=== PATIENT | male | born 1940 | race American Indian/Alaskan Native ===

== ENCOUNTER 2018-06-04 13:24 | Inpatient (IN) | payer MEDICARE ==
[2018-06-04 14:22] LABS: Hematocrit 33.2 % (35.5-45.6); Hemoglobin 10.6 gm/dl (11.8-15.2); Mean Corpuscular HGB Conc 32 % (32-34); Mean Corpuscular Hemoglobin 27 pg (28-32); Mean Corpuscular Volume 83 fl (84-94); Platelet Count 342 K/mm3 (140-440); Red Blood Count 3.98 M/mm3 (3.65-5.03); Red Cell Distribution Width 14.2 % (13.2-15.2)
[2018-06-04 14:46] LABS: Albumin 3.3 g/dL (3.9-5); Calcium 9.1 mg/dL (8.4-10.2)
--- NOTE | 2018-06-04 16:46 | Emergency Department Report ---
HPI - General Chief Complaint: Extremity Injury, Lower Time Seen by Provider: 06/04/18 16:24 - HPI HPI: Room 26 The patient is a 77-year-old male presented with a chief complaint of bilateral lower extremity swelling. The patient states he's had bilateral lower extremity edema for approximately one year. One week ago patient's commercial hvac technician Dr. Graves doubled his diuretic (per patient). The patient was instructed to call the swelling did not improve. The patient states he took his diuretic as prescribed but swelling has not decreased enough for him. The patient states he contacted Dr. Graves yesterday and initially the patient was going to be admitted to [facility] however there were no beds. Subsequently the patient was sent here for evaluation/admission. Patient complains of pain in both knees which is chronic. Patient denies other pain. Patient denies fever, shortness of breath, chest pain nausea or vomiting. Location: Bilateral lower extremities Duration: [See above] Quality: Swelling Severity: Moderate Modifying factors: [see above] Context: [see above] Mode of transportation: [not driving] ED Past Medical Hx - Past Medical History Previous Medical History?: Yes Hx Hypertension: Yes (FOR 6 YRS, DR. CLAROS- PCP) Hx Diabetes: Yes (FOR 6 YRS) Additional medical history: gout. left knee replacement 2006. Peripheral vascular disease - Surgical History Past Surgical History?: Yes Additional Surgical History: vascular surgery for ablasions in both legs, left lower extremity angioplasty - Family History Family history: no significant - Social History Smoking Status: Never Smoker Substance Use Type: None - Medications Home Medications: Home Medications Medication Instructions Recorded Confirmed Last Taken Type Psyllium Husk/Calcium Carb 1 each PO QDAY 09/10/13 08/18/14 09/13/13 History [Metamucil Plus Calcium Capsule] 1 CAPSULE Allopurinol [Zyloprim] 100 mg PO QDAY 08/18/14 08/18/14 Unknown History Fluocinonide 0.05%(Nf) [Lidex (Nf)] 0.05 applicatio TP BID 08/18/14 08/18/1405/24 09:15 History Loratadine [Claritin] 10 mg PO DAILY 08/18/14 08/18/14 Unknown History Metolazone [Zaroxolyn] 5 mg PO DAILY 08/18/14 08/18/14 Unknown History Multivitamin Tab [Multiple Vitamin 1 tab PO DAILY 08/18/14 08/18/14 Unknown History TAB (Theragran)] Potassium Chloride [Klor-Con 10] 10 meq PO DAILY 08/18/14 08/18/14 Unknown History Aspirin [Aspirin TAB] 325 mg PO QDAY #30 tablet 09/02/14 Unknown Rx Hydrochlorothiazide [HCTZ] 25 mg PO QDAY #30 tablet 09/02/14 Unknown Rx Rosuvastatin (Nf) [Crestor] 5 mg PO QHS #30 tablet 09/02/14 Unknown Rx Tamsulosin [Flomax] 0.4 mg PO QDAY #30 capsule 09/02/14 Unknown Rx amLODIPine [Norvasc] 10 mg PO QDAY #30 tablet 09/02/14 Unknown Rx glipiZIDE [Glucotrol] 5 mg PO QDDIAB #60 tablet 09/02/14 Unknown Rx metFORMIN [Glucophage] 1,000 mg PO BIDDIAB #60 tablet 09/02/14 Unknown Rx ED Review of Systems ROS: Stated complaint: OUT PT Other details as noted in HPI Constitutional: denies: fever Eyes: denies: eye pain ENT: denies: throat pain Respiratory: denies: shortness of breath Cardiovascular: denies: chest pain Endocrine: denies: unexplained weight loss Gastrointestinal: denies: abdominal pain, nausea, vomiting Genitourinary: denies: dysuria Musculoskeletal: arthralgia Neurological: denies: headache Physical Exam - Physical Exam Vital Signs: Vital Signs 06/04/18 13:37 Temperature 97.8 F Pulse Rate 64 Respiratory 18 Rate Blood Pressure 147/72 O2 Sat by Pulse 98 Oximetry Physical Exam: GENERAL: The patient is well-developed well-nourished male sitting on stretcher not appear to be in acute distress. [] HEENT: Normocephalic. Atraumatic. Extraocular motions are intact. Patient has moist mucous membranes. NECK: Supple. Trachea midline CHEST/LUNGS: Clear to auscultation. There is no respiratory distress noted. HEART/CARDIOVASCULAR: Occasionally irregular on auscultation (PVCs? Will obtain EKG). There is no tachycardia. There is no gallop rub or murmur. ABDOMEN: Abdomen is soft, nontender. Patient has normal bowel sounds. There is no abdominal distention. SKIN: There is 1+ bilateral lower extremity pitting edema. There is no diaphoresis. NEURO: The patient is awake, alert, and oriented. The patient is cooperative. The patient has normal speech MUSCULOSKELETAL: There is no evidence of acute injury. ED Course Vital Signs 06/04/18 13:37 Temperature 97.8 F Pulse Rate 64 Respiratory 18 Rate Blood Pressure 147/72 O2 Sat by Pulse 98 Oximetry - Consultations Consultation #1: 06/04/18 16:[address] Graves paged 06/04/18 16:[address] Graves-requests patient be admitted by hospitalist for IV Lasix. Creatinine discussed with Dr. Graves states the patient's baseline creatinine is approximately 2.4/2.5 ED Medical Decision Making - Lab Data Result diagrams: 06/04/18 14:01 06/04/18 14:01 - EKG Data -: EKG Interpreted by Me EKG shows normal: sinus rhythm Rate: normal (80 bpm) - EKG Data When compared to previous EKG there are: previous EKG unavailable Interpretation: other (PACs) - Differential Diagnosis peripheral vascular disease, renal failure, CHF, Critical care attestation.: If time is entered above; I have spent that time in minutes in the direct care of this critically ill patient, excluding procedure time. ED Disposition Clinical Impression: Peripheral edema, Acute on chronic renal insufficiency Disposition: OP ADMIT IP TO THIS HOSP Is pt being admited?: Yes Does the pt Need Aspirin: No Condition: Stable Time of Disposition: 17:20 (Hospitalist notified (Dr Field))
--- NOTE | 2018-06-04 17:06 | History and Physical Report ---
History of Present Illness Chief complaint: My leg hurts History of present illness: 77 YO Male with HTN, DM, Obesity, PVD, Gout, OA presents to ED for evaluation. Pt states that he has experienced bilateral leg swelling over the past year with worsening symptoms over the past 2 week, with some improvement in the past 1 week. Pt notified his open die inspector who instructed the patient to seek medical attention. Pt transported to [facility]. Pt seen and evaluated in ED and found to have ARF, SIRS, and LLE Cellulitis. Pt initiated on antibiotic therapy. Pt admitted to medical floor. Nephrology consulted in ED. Pt found to have PAC's on EKG. Cardiology consulted in ED. Pt denies fever, chills, CP, Palpitations, NVD, Trauma, recent ill contacts. Past History Past Medical History: diabetes, hypertension, PVD Past Surgical History: total knee replacement Social history: , lives with family. denies: smoking, alcohol abuse, prescription drug abuse Family history: diabetes, hypertension Medications and Allergies Allergies Allergy/AdvReac Type Severity Reaction Status Date / Time shellfish derived Allergy Shortness Verified 08/18/14 01:39 of Breath iodine AdvReac SWELLING & Verified 09/10/13 14:16 RESPIRATORY DIFFICULTIES lisinopril AdvReac SWELLING & Verified 09/10/13 15:01 RESPIRATORY DIFFICULTIES Home Medications Medication Instructions Recorded Confirmed Last Taken Type Psyllium Husk/Calcium Carb 1 each PO QDAY 09/10/13 08/18/14 09/13/13 History [Metamucil Plus Calcium Capsule] 1 CAPSULE Allopurinol [Zyloprim] 100 mg PO QDAY 08/18/14 08/18/14 Unknown History Fluocinonide 0.05%(Nf) [Lidex (Nf)] 0.05 applicatio TP BID 08/18/14 08/18/1405/24 09:15 History Loratadine [Claritin] 10 mg PO DAILY 08/18/14 08/18/14 Unknown History Metolazone [Zaroxolyn] 5 mg PO DAILY 08/18/14 08/18/14 Unknown History Multivitamin Tab [Multiple Vitamin 1 tab PO DAILY 08/18/14 08/18/14 Unknown History TAB (Theragran)] Potassium Chloride [Klor-Con 10] 10 meq PO DAILY 08/18/14 08/18/14 Unknown History Aspirin [Aspirin TAB] 325 mg PO QDAY #30 tablet 09/02/14 Unknown Rx Hydrochlorothiazide [HCTZ] 25 mg PO QDAY #30 tablet 09/02/14 Unknown Rx Rosuvastatin (Nf) [Crestor] 5 mg PO QHS #30 tablet 09/02/14 Unknown Rx Tamsulosin [Flomax] 0.4 mg PO QDAY #30 capsule 09/02/14 Unknown Rx amLODIPine [Norvasc] 10 mg PO QDAY #30 tablet 09/02/14 Unknown Rx glipiZIDE [Glucotrol] 5 mg PO QDDIAB #60 tablet 09/02/14 Unknown Rx metFORMIN [Glucophage] 1,000 mg PO BIDDIAB #60 tablet 09/02/14 Unknown Rx Review of Systems Constitutional: no weight loss, no weight gain, no fever, no chills Ears, nose, mouth and throat: no ear pain, no ear discharge, no tinnitis, no decreased hearing, no nose pain, no nasal congestion, no nasal discharge Cardiovascular: leg edema, no chest pain, no orthopnea, no palpitations, no rapid/irregular heart beat, no edema, no syncope Respiratory: no cough, no cough with sputum, no excessive sputum, no hemoptysis , no shortness of breath Gastrointestinal: no abdominal pain, no nausea, no vomiting, no diarrhea, no constipation, no change in bowel habits, no hematemesis Genitourinary Male: no hematuria, no flank pain, no discharge, no urinary frequency, no urinary hesitancy, no nocturia Rectal: no pain, no incontinence, no bleeding Musculoskeletal: no neck pain, no shooting arm pain, no arm numbness/tingling, no low back pain, no shooting leg pain, no leg numbness/tingling Integumentary: redness (Left leg,), no rash, no pruritis Neurological: no head injury, no transient paralysis, no paralysis, no weakness , no parathesias, no numbness, no tingling, no seizures Psychiatric: no anxiety, no memory loss, no change in sleep habits, no sleep disturbances, no insomnia, no hypersomnia, no change in appetite, no change in libido, no suicidal ideation Endocrine: no cold intolerance, no heat intolerance, no polyphagia, no excessive thirst, no polydipsia, no nocturia, no excessive sweating, no flushing Hematologic/Lymphatic: no easy bruising, no easy bleeding, no lymphadenopathy, no lymphedema Allergic/Immunologic: no urticaria, no allergic rhinitis, no wheezing Exam - Constitutional Vitals: Temp Pulse Resp BP Pulse Ox 97.8 F 64 18 147/72 98 06/04/18 13:37 06/04/18 13:37 06/04/18 13:37 06/04/18 13:37 06/04/18 13:37 General appearance: Present: mild distress, obese - EENT Eyes: Present: PERRL ENT: hearing intact, clear oral mucosa - Neck Neck: Present: supple, normal ROM - Respiratory Respiratory effort: normal Respiratory: bilateral: CTA - Cardiovascular Heart Sounds: Present: S1 & S2. Absent: rub, click - Extremities Extremities: pulses symmetrical, No edema Peripheral Pulses: within normal limits - Abdominal General gastrointestinal: Present: soft, non-tender, non-distended, normal bowel sounds Male genitourinary: Present: normal - Integumentary Integumentary: Present: clear, warm, dry - Musculoskeletal Musculoskeletal: gait normal, strength equal bilaterally - Psychiatric Psychiatric: appropriate mood/affect, intact judgment & insight - Neurologic Neurologic: CNII-XII intact, moves all extremities Results - Labs CBC & Chem 7: 06/04/18 14:01 06/04/18 14:01 Labs: Abnormal lab results 06/04/18 06/04/18 Range/Units 14:01 14:01 WBC 12.9 H (4.5-11.0) K/mm3 Hgb 10.6 L (11.8-15.2) gm/dl Hct 33.2 L (35.5-45.6) % MCV 83 L (84-94) fl MCH 27 L (28-32) pg Chloride 92.7 L (98-107) mmol/L BUN 43 H (9-20) mg/dL Creatinine 2.8 H (0.8-1.5) mg/dL Glucose 232 H (75-100) mg/dL Albumin 3.3 L (3.9-5) g/dL Assessment and Plan - Patient Problems (1) ARF (acute renal failure) with tubular necrosis Current Visit: Yes Status: Acute Plan to address problem: IVF resuscitation, nephrology consulted in ED, BMP, monitor uop q shift, (2) SIRS (systemic inflammatory response syndrome) Current Visit: Yes Status: Acute Plan to address problem: IV antibiotic therapy, IVF resuscitation, supportive care. (3) Cellulitis Current Visit: Yes Status: Acute Qualifiers: Site of cellulitis of extremity: lower extremity Laterality: left Plan to address problem: IV antibiotics, IVF resuscitation, LLE Duplex (4) PAC (premature atrial contraction) Current Visit: Yes Status: Acute Plan to address problem: Remote telemetry, serial cardiac enzymes, echo, cardiology consulted in ED (5) DVT prophylaxis Current Visit: Yes Status: Acute Plan to address problem: SCD to BLE while in bed.
[2018-06-04] MEDS ORDERED: PROVENTIL IH PRN (17:25)
[2018-06-04] MEDS ORDERED: ZOFRAN IV PRN (17:25)
[2018-06-04] MEDS ORDERED: SODIUM CHLORIDE FLUSH SYRINGE 10 ML IV PRN ×2 (17:25→18:38)
[2018-06-04] MEDS ORDERED: D50W (25GM) Syringe IV PRN (17:34)
[2018-06-04] MEDS: HumaLOG SUB-Q SCH (19:08)
[2018-06-04] MEDS ORDERED: FLUOCINONIDE 0.05% TP SCH (22:00)
[2018-06-04] MEDS ORDERED: ROSUVASTATIN 5 MG PO SCH (22:00)
[2018-06-04 22:01] LABS: Basophils # (Auto) 0.1 K/mm3 (0.0-0.1); Basophils % (Auto) 0.7 % (0.0-1.8); Eosinophils # (Auto) 1.1 K/mm3 (0.0-0.4); Eosinophils % (Auto) 7.2 % (0.0-4.3); Hemoglobin 10.3 gm/dl (11.8-15.2); Lymphocytes # (Auto) 1.6 K/mm3 (1.2-5.4); Lymphocytes % (Auto) 10.5 % (13.4-35.0); Mean Corpuscular HGB Conc 32 % (32-34); Mean Corpuscular Hemoglobin 27 pg (28-32); Mean Corpuscular Volume 83 fl (84-94); Monocytes # (Auto) 1.6 K/mm3 (0.0-0.8); Monocytes % (Auto) 10.5 % (0.0-7.3); Platelet Count 349 K/mm3 (140-440); Red Blood Count 3.87 M/mm3 (3.65-5.03); Red Cell Distribution Width 14.4 % (13.2-15.2)
[2018-06-04] MEDS: SODIUM CHLORIDE FLUSH SYRINGE 10 ML IV SCH (22:25)
[2018-06-04 22:35] LABS: Calcium 8.9 mg/dL (8.4-10.2)
[2018-06-04 22:53] LABS: Chol/HDL Ratio 3.97 %
[2018-06-05] MEDS: TYLENOL PO PRN (00:59)
[2018-06-05] MEDS: HumaLOG SUB-Q SCH ×5 (01:25→22:42)
--- NOTE | 2018-06-05 08:58 | Consultation ---
History of Present Illness - Reason for Consult Consult date: 06/05/18 acute renal failure, chronic renal failure Requesting physician: MANOJ LIND - History of Present Illness 77-year-old male who was admitted because of worsening bilateral lower extremity swelling. Patient saw Dr. Graves in the office a couple of weeks ago and the dose of oral diuretic was doubled. Patient did not observe any improvement and so he called and was sent to the hospital for IV diuretics. He also complains of pain now. Denies any chills or fever. 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 denies: smoking (Quit smoking about 10 years ago), alcohol abuse, prescription drug abuse Family history: cancer (father of prostate cancer), diabetes, hypertension , other ( of congestive heart failure) Medications and Allergies Allergies Allergy/AdvReac Type Severity Reaction Status Date / Time shellfish derived Allergy Shortness Verified 08/18/14 01:39 of Breath iodine AdvReac SWELLING & Verified 09/10/13 14:16 RESPIRATORY DIFFICULTIES lisinopril AdvReac SWELLING & Verified 09/10/13 15:01 RESPIRATORY DIFFICULTIES Home Medications Medication Instructions Recorded Confirmed Last Taken Type Metolazone [Zaroxolyn] 5 mg PO BID 08/18/14 06/04/18 Unknown History Potassium Chloride [Klor-Con 10] 10 meq PO DAILY 08/18/14 06/04/18 Unknown History Rosuvastatin (Nf) [Crestor] 5 mg PO QHS #30 tablet 09/02/14 06/04/18 Unknown Rx Allopurinol [Zyloprim] 300 mg PO QDAY 06/04/18 06/04/18 Unknown History Clopidogrel Bisulfate [Plavix] 75 mg PO DAILY 06/04/18 06/04/18 Unknown History Colchicine [Mitigare] 0.6 mg PO DAILY 06/04/18 06/04/18 Unknown History Diphenoxylate HCl/Atropine 1 each PO Q12H 06/04/18 06/04/18 Unknown History [Diphenoxylate-Atrop 2.5-0.025] Donepezil [Aricept] 5 mg PO DAILY 06/04/18 06/04/18 Unknown History Hydralazine HCl 25 mg PO TID 06/04/18 06/04/18 Unknown History Insulin Degludec [Tresiba 70 unit SQ QHS 06/04/18 06/04/18 Unknown History Flextouch U-100] Losartan [Cozaar] 100 mg PO QDAY 06/04/18 06/04/18 Unknown History Mirabegron [Myrbetriq] 50 mg PO DAILY 06/04/18 06/04/18 Unknown History NIFEdipine [Nifedipine ER] 60 mg PO DAILY 06/04/18 06/04/18 Unknown History Active Meds: Active Medications Acetaminophen (Tylenol) 650 mg PO Q4H PRN PRN Reason: Pain MILD(1-3)/Fever >100.5/HOWARD Last Admin: 06/05/18 00:59 Dose: 650 mg Albuterol (Proventil) 2.5 mg IH Q4HRT PRN PRN Reason: Shortness Of Breath Allopurinol (Zyloprim) 100 mg PO QDAY [facility] Amlodipine Besylate (Norvasc) 10 mg PO QDAY [facility] Aspirin (Aspirin) 325 mg PO QDAY [facility] Atorvastatin Calcium (Lipitor) 10 mg PO QHS [facility] Last Admin: 06/04/18 22:24 Dose: 10 mg Dextrose (D50w (25gm) Syringe) 50 ml IV PRN PRN PRN Reason: Hypoglycemia Hydrochlorothiazide (Hctz) 25 mg PO QDAY [facility] Ceftriaxone Sodium (Rocephin/Ns 1 Gm/50 Ml) 1 gm in 50 mls @ 100 mls/hr IV Q24HR [facility]; Protocol Insulin Human Lispro (Humalog) 0 unit SUB-Q Q6HR [facility]; Protocol Last Admin: 06/05/18 07:05 Dose: 2 unit Loratadine (Claritin) 10 mg PO DAILY [facility] Metolazone (Zaroxolyn) 5 mg PO DAILY [facility] Miscellaneous Medication (Fluocinonide 0.05%(Nf)) 0.05 applicatio TP BID [facility] Miscellaneous Medication (Psyllium Husk/Calcium Carb [Metamucil Plus Calcium Capsule]) 1 each PO QDAY [facility] Multivitamins (Theragran Tab) 1 each PO DAILY [facility] Ondansetron HCl (Zofran) 4 mg IV Q8H PRN PRN Reason: Nausea And Vomiting Pneumococcal Polyvalent Vaccine (Pneumovax 23) 0.5 ml IM .ONCE ONE Stop: 06/05/18 12:01 Potassium Chloride (K-Dur) 10 meq PO QDAY [facility] Sodium Chloride (Sodium Chloride Flush Syringe 10 Ml) 10 ml IV BID [facility] Last Admin: 06/04/18 22:25 Dose: 10 ml Sodium Chloride (Sodium Chloride Flush Syringe 10 Ml) 10 ml IV PRN PRN PRN Reason: LINE FLUSH Sodium Chloride (Sodium Chloride Flush Syringe 10 Ml) 10 ml IV PRN PRN PRN Reason: LINE FLUSH Tamsulosin HCl (Flomax) 0.4 mg PO QDAY [facility] Review of Systems All systems: negative (Constitutional: no fever or chills. No anorexia or weight loss. HEENT: No sore throat but admits to posterior knee surgery and sinus drainage. No hearing or vision impairment . Cardiovascular: No chest pain , but admits to shortness of breath and lower extremity swelling. No , palpitations or dizziness. Respiratory: Admits to cough which is nonproductive. No hemoptysis or wheezing. Gastrointestinal: No nausea, vomiting but he had diarrhea 4 to a couple of days ago which has resolved. No abdominal pain, hematemesis or melena. Genitourinary: No frequency urgency dysuria or hematuria but he did observe a decrease in urine output. hematologic : No abnormal bleeding or bruising. Integumentary: no pruritus but understood the rash in both lower changes. Neurological: Admits to headache last night. No focal weakness or numbness, no syncope or seizures. Endocrine: Blood sugar has been controlled but increased over the last 2 days. He also admits to cold intolerance. No heat intolerance. Musculoskeletal: Admits to pain in his right knee. No stiffness. Psychiatry: no anxiety or depression) Exam - Vital Signs Vital signs: Vital Signs Temp Pulse Resp BP Pulse Ox 97.8 F 64 18 147/72 98 06/04/18 13:37 06/04/18 13:37 06/04/18 13:37 06/04/18 13:37 06/04/18 13:37 - Physical Exam Narrative exam: Elderly -Algerian lying in bed in no acute distress HEENT: NCAT, pink oral mucous membrane Neck: Supple, no venous distention CVS: S1S2 RRR with no murmur, rub or gallop Chest: Clear to auscultation but diminished in the lower zones Abdomen: obese soft, nontender, no organomegaly, bowel sounds are present Extremities: 1-2+ bilateral lower extremity edema, scaling with pigmentary changes in both legs with thickening of the skin, tenderness worse in the right leg Genitourinary deferred: Skin as noted in lower extremity exam Neuro: Awake, alert no focal deficits Results - Lab Results 06/06/18 05:01 06/06/18 05:01 Most recent lab results Calcium 8.9 mg/dL (8.4-10.2) 06/04/18 21:44 Assessment and Plan - Patient Problems (1) Type 2 diabetes mellitus with diabetic chronic kidney disease Current Visit: Yes Status: Acute Plan to address problem: Blood sugar management by primary attending (2) Hypertensive chronic kidney disease with stage 1 through stage 4 chronic kidney disease, or unspecified chronic kidney disease Current Visit: Yes Status: Acute Plan to address problem: Follow-up of blood pressure on current medications (3) Acute kidney injury Current Visit: No Status: Chronic Plan to address problem: Acute on chronic kidney disease. Acute kidney injury is probably prerenal azotemia. Get renal ultrasound and urine studies. Follow up electrolytes and renal function with diuresis. (4) Cellulitis of both lower extremities Current Visit: Yes Status: Acute Plan to address problem: Follow-up cultures. Continue antibiotics (5) Bilateral lower extremity edema Current Visit: Yes Status: Acute Plan to address problem: IV diuretics
[2018-06-05] MEDS ORDERED: NON-FORMULARY (Potassium Chloride [Klor-Con 10] 10 MEQ) PO SCH (10:00)
[2018-06-05] MEDS ORDERED: HCTZ PO SCH (10:00)
[2018-06-05] MEDS ORDERED: NORVASC PO SCH (10:00)
[2018-06-05] MEDS: ASPIRIN PO SCH (10:30)
[2018-06-05] MEDS: ZYLOPRIM PO SCH (10:31)
[2018-06-05] MEDS: ZAROXOLYN PO SCH (10:31)
[2018-06-05] MEDS: ROCEPHIN/NS 1 GM/50 ML 1 GM/50 ML BAG IV SCH (10:31)
[2018-06-05] MEDS: CLARITIN PO SCH (10:31)
[2018-06-05] MEDS: FLOMAX PO SCH (10:31)
[2018-06-05] MEDS: THERAGRAN Tab PO SCH (10:31)
[2018-06-05] MEDS: K-DUR PO SCH (10:31)
[2018-06-05] MEDS: SODIUM CHLORIDE FLUSH SYRINGE 10 ML IV SCH ×2 (10:32→22:00)
--- NOTE | 2018-06-05 10:51 | Progress Note ---
Assessment and Plan Assessment and plan: Mr. Petr Hanson is a 77 yo man with a history of hypertension, type 2 DM, pvd, gout and OA who presented with leg pains and swelling. Admitted for arf, sirs, and lle cellulitis. * LLE venous duplex technically limited due to habitus, no DVT/SVT visualized -ARF (acute renal failure) multi-factorial, with tubular necrosis dx on admission: IVF resuscitation, nephrology consulted in ED, BMP, monitor uop q shift, -Sepsis LLE cellulitis, poa: treat with abx -Obese, bmi 35.5: weight reduction stressed -Type 2 DM with hyperglycemia: start diet, add ssi -Hypokalemia: replace and bmp am -Anemia, appears chronic because no signs of bleeding, but check cbc in am, ordered FOBT -PAC (premature atrial contraction): usually PACs are benign but Remote telemetry, serial cardiac enzymes, echo (cancelled), cardiology consulted ordered -DVT prophylaxis: scd and asa, hold heparin due to anemia, recheck cbc to make sure h/h stable -Advance care planning: full code ordered Renal u/s, FOBT am labs History Interval history: Patient was seen and examined. Follow-up on current diagnosis of leg pains. Overnight uneventful. Patient denies any chest pain, shortness breath, nausea/ vomiting or severe headaches. Imaging, nursing note, chart, labs and old chart reviewed. Discussed with patient. Hospitalist Physical - Physical exam Narrative exam: GEN: WDWN, NAD, Awake, Alert, Orientated x 3 HEENT: NCAT, EOMI, PERRL, OP Clear NECK: supple, no adenopathy, no thyromegaly, no JVD CVS/HEART: RRR, normal S1S2, pulses present bilaterally CHEST/LUNGS: CTA B, Symmetrical chest expansion, good air entry bilaterally GI/Abdomen: soft, NTND, good bowel sounds, no guarding or rebound /Bladder: no suprapubic tenderness, no CVA or paraspinal tenderness EXT/Skin: lower leg venous changes MSK: FROM x 4 Neuro: CN 2-12 grossly intact, no new focal deficits Psych: calm - Constitutional Vitals: Temp Pulse Resp BP Pulse Ox 97.9 F 70 18 138/61 95 06/05/18 09:04 06/05/18 09:04 06/05/18 09:04 06/05/18 09:04 06/05/18 09:04 General appearance: Present: obese Results - Labs CBC & Chem 7: 06/04/18 21:44 06/04/18 21:44 Labs: Laboratory Last Values WBC 15.3 K/mm3 (4.5-11.0) H 06/04/18 21:44 RBC 3.87 M/mm3 (3.65-5.03) 06/04/18 21:44 Hgb 10.3 gm/dl (11.8-15.2) L 06/04/18 21:44 Hct 32.0 % (35.5-45.6) L 06/04/18 21:44 MCV 83 fl (84-94) L 06/04/18 21:44 MCH 27 pg (28-32) L 06/04/18 21:44 MCHC 32 % (32-34) 06/04/18 21:44 RDW 14.4 % (13.2-15.2) 06/04/18 21:44 Plt Count 349 K/mm3 (140-440) 06/04/18 21:44 Lymph % (Auto) 10.5 % (13.4-35.0) L 06/04/18 21:44 Emmet % (Auto) 10.5 % (0.0-7.3) H 06/04/18 21:44 Eos % (Auto) 7.2 % (0.0-4.3) H 06/04/18 21:44 Baso % (Auto) 0.7 % (0.0-1.8) 06/04/18 21:44 Lymph # 1.6 K/mm3 (1.2-5.4) 06/04/18 21:44 Emmet # 1.6 K/mm3 (0.0-0.8) H 06/04/18 21:44 Eos # 1.1 K/mm3 (0.0-0.4) H 06/04/18 21:44 Baso # 0.1 K/mm3 (0.0-0.1) 06/04/18 21:44 Seg Neutrophils % 71.1 % (40.0-70.0) H 06/04/18 21:44 Seg Neutrophils # 10.9 K/mm3 (1.8-7.7) H 06/04/18 21:44 Sodium 137 mmol/L (137-145) 06/04/18 21:44 Potassium 3.2 mmol/L (3.6-5.0) L 06/04/18 21:44 Chloride 92.7 mmol/L (98-107) L 06/04/18 21:44 Carbon Dioxide 27 mmol/L (22-30) 06/04/18 21:44 Anion Gap 21 mmol/L 06/04/18 21:44 BUN 46 mg/dL (9-20) H 06/04/18 21:44 Creatinine 2.8 mg/dL (0.8-1.5) H 06/04/18 21:44 Estimated GFR 27 ml/min 06/04/18 21:44 BUN/Creatinine Ratio 16 % 06/04/18 21:44 Glucose 180 mg/dL (75-100) H 06/04/18 21:44 POC Glucose 176 (70-105) H 06/05/18 05:49 Calcium 8.9 mg/dL (8.4-10.2) 06/04/18 21:44 Total Bilirubin 0.50 mg/dL (0.1-1.2) 06/04/18 14:01 AST 12 units/L (5-40) 06/04/18 14:01 ALT 8 units/L (7-56) 06/04/18 14:01 Alkaline Phosphatase 99 units/L (35-129) 06/04/18 14:01 Troponin T 0.030 ng/mL (0.00-0.029) H D 06/05/18 00:14 NT-Pro-B Natriuret Pep 583.7 pg/mL (0-900) 06/04/18 14:01 Total Protein 7.5 g/dL (6.3-8.2) 06/04/18 14:01 Albumin 3.3 g/dL (3.9-5) L 06/04/18 14:01 Albumin/Globulin Ratio 0.8 % 06/04/18 14:01 Triglycerides 218 mg/dL (2-149) H 06/04/18 21:44 Cholesterol 139 mg/dL (50-199) 06/04/18 21:44 LDL Cholesterol Direct 74 mg/dL (50-130) 06/04/18 21:44 HDL Cholesterol 35 mg/dL (40-59) L 06/04/18 21:44 Cholesterol/HDL Ratio 3.97 % 06/04/18 21:44
[2018-06-05] MEDS ORDERED: D50W (25GM) Syringe IV PRN (10:55)
[2018-06-05] MEDS ORDERED: PNEUMOVAX 23 IM ONE (12:00)
--- NOTE | 2018-06-05 12:30 | Consultation ---
History of Present Illness Consult date: 06/05/18 Consult reason: other (abnormal ECG) History of present illness: Patient is a 77-year-old man with a history of chronic kidney disease, chronic lower extremity edema and chronic stasis changes. He was sent to the hospital from his finance lecturer office, for further evaluation and management of his edema. Notably, he follows up with his independent sales representative regularly was documented and long-standing edema, and an echocardiogram done just last month demonstrated normal left ventricular systolic function. On presentation to the emergency room, an ECG was done that demonstrated sinus rhythm with occasional PACs, which prompted a cardiac consultation. Otherwise, the patient has no chest pain, no shortness of breath, no palpitations and no orthopnea. Laboratory exam shows a creatinine of 2.8 and a potassium of 3.6. Overnight, the patient's edema has resolved, currently just has chronic stasis changes with no significant residual edema. Comorbidities include history of paroxysmal atrial fibrillation for which the patient is on chronic anticoagulation with Eliquis. ECG on this presentation is a normal sinus rhythm with PACs, otherwise benign ECG. 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 denies: smoking (Quit smoking about 10 years ago), alcohol abuse, prescription drug abuse Family history: cancer (father of prostate cancer), diabetes, hypertension , other ( of congestive heart failure) Medications and Allergies Allergies Allergy/AdvReac Type Severity Reaction Status Date / Time shellfish derived Allergy Shortness Verified 08/18/14 01:39 of Breath iodine AdvReac SWELLING & Verified 09/10/13 14:16 RESPIRATORY DIFFICULTIES lisinopril AdvReac SWELLING & Verified 09/10/13 15:01 RESPIRATORY DIFFICULTIES Home Medications Medication Instructions Recorded Confirmed Last Taken Type Metolazone [Zaroxolyn] 5 mg PO BID 08/18/14 06/04/18 Unknown History Potassium Chloride [Klor-Con 10] 10 meq PO DAILY 08/18/14 06/04/18 Unknown History Rosuvastatin (Nf) [Crestor] 5 mg PO QHS #30 tablet 09/02/14 06/04/18 Unknown Rx Allopurinol [Zyloprim] 300 mg PO QDAY 06/04/18 06/04/18 Unknown History Clopidogrel Bisulfate [Plavix] 75 mg PO DAILY 06/04/18 06/04/18 Unknown History Colchicine [Mitigare] 0.6 mg PO DAILY 06/04/18 06/04/18 Unknown History Diphenoxylate HCl/Atropine 1 each PO Q12H 06/04/18 06/04/18 Unknown History [Diphenoxylate-Atrop 2.5-0.025] Donepezil [Aricept] 5 mg PO DAILY 06/04/18 06/04/18 Unknown History Hydralazine HCl 25 mg PO TID 06/04/18 06/04/18 Unknown History Insulin Degludec [Tresiba 70 unit SQ QHS 06/04/18 06/04/18 Unknown History Flextouch U-100] Losartan [Cozaar] 100 mg PO QDAY 06/04/18 06/04/18 Unknown History Mirabegron [Myrbetriq] 50 mg PO DAILY 06/04/18 06/04/18 Unknown History NIFEdipine [Nifedipine ER] 60 mg PO DAILY 06/04/18 06/04/18 Unknown History Active Meds: Active Medications Acetaminophen (Tylenol) 650 mg PO Q4H PRN PRN Reason: Pain MILD(1-3)/Fever >100.5/HOWARD Last Admin: 06/05/18 00:59 Dose: 650 mg Albuterol (Proventil) 2.5 mg IH Q4HRT PRN PRN Reason: Shortness Of Breath Allopurinol (Zyloprim) 100 mg PO QDAY [facility] Last Admin: 06/05/18 10:31 Dose: 100 mg Amlodipine Besylate (Norvasc) 10 mg PO QDAY [facility] Last Admin: 06/05/18 10:53 Dose: Not Given Aspirin (Aspirin) 325 mg PO QDAY [facility] Last Admin: 06/05/18 10:30 Dose: 325 mg Atorvastatin Calcium (Lipitor) 10 mg PO QHS [facility] Last Admin: 06/04/18 22:24 Dose: 10 mg Dextrose (D50w (25gm) Syringe) 50 ml IV PRN PRN PRN Reason: Hypoglycemia Hydrochlorothiazide (Hctz) 25 mg PO QDAY [facility] Last Admin: 06/05/18 10:52 Dose: Not Given Ceftriaxone Sodium (Rocephin/Ns 1 Gm/50 Ml) 1 gm in 50 mls @ 100 mls/hr IV Q24HR [facility]; Protocol Last Admin: 06/05/18 10:31 Dose: 100 mls/hr Insulin Human Lispro (Humalog) 0 unit SUB-Q ACHS [facility]; Protocol Last Admin: 06/05/18 12:08 Dose: 3 unit Loratadine (Claritin) 10 mg PO DAILY [facility] Last Admin: 06/05/18 10:31 Dose: 10 mg Metolazone (Zaroxolyn) 5 mg PO DAILY [facility] Last Admin: 06/05/18 10:31 Dose: 5 mg Miscellaneous Medication (Fluocinonide 0.05%(Nf)) 0.05 applicatio TP BID [facility] Multivitamins (Theragran Tab) 1 each PO DAILY [facility] Last Admin: 06/05/18 10:31 Dose: 1 each Ondansetron HCl (Zofran) 4 mg IV Q8H PRN PRN Reason: Nausea And Vomiting Potassium Chloride (K-Dur) 10 meq PO QDAY [facility] Last Admin: 06/05/18 10:31 Dose: 10 meq Psyllium Hydrophilic Mucilloid (Metamucil) 1 each PO QDAY [facility] Sodium Chloride (Sodium Chloride Flush Syringe 10 Ml) 10 ml IV BID [facility] Last Admin: 06/05/18 10:32 Dose: 10 ml Sodium Chloride (Sodium Chloride Flush Syringe 10 Ml) 10 ml IV PRN PRN PRN Reason: LINE FLUSH Sodium Chloride (Sodium Chloride Flush Syringe 10 Ml) 10 ml IV PRN PRN PRN Reason: LINE FLUSH Tamsulosin HCl (Flomax) 0.4 mg PO QDAY [facility] Last Admin: 06/05/18 10:31 Dose: 0.4 mg Review of Systems Cardiovascular: edema, no chest pain, no orthopnea, no palpitations, no rapid/ irregular heart beat, no syncope, no lightheadedness, no shortness of breath Physical Examination Vital Signs Temp Pulse Resp BP Pulse Ox 97.8 F 64 18 147/72 98 06/04/18 13:37 06/04/18 13:37 06/04/18 13:37 06/04/18 13:37 06/04/18 13:37 General appearance: no acute distress HEENT: Positive: PERRL Neck: Positive: neck supple Cardiac: Positive: Reg Rate and Rhythm Lungs: Positive: Decreased Breath Sounds Neuro: Positive: Grossly Intact Abdomen: Positive: Soft Male genitourinary: Positive: deferred Skin: Positive: Clear Extremities: Present: edema (trace), Other (chronic stasis changes) Results 06/04/18 21:44 06/04/18 21:44 Cardiac Enzymes 06/04/18 Range/Units 14:01 AST 12 (5-40) units/L Lipids 06/04/18 Range/Units 21:44 Triglycerides 218 H (2-149) mg/dL Cholesterol 139 (50-199) mg/dL HDL Cholesterol 35 L (40-59) mg/dL Cholesterol/HDL Ratio 3.97 % CBC 06/04/18 06/04/18 Range/Units 14:01 21:44 WBC 12.9 H 15.3 H (4.5-11.0) K/mm3 RBC 3.98 3.87 (3.65-5.03) M/mm3 Hgb 10.6 L 10.3 L (11.8-15.2) gm/dl Hct 33.2 L 32.0 L (35.5-45.6) % Plt Count 342 349 (140-440) K/mm3 Lymph # 1.6 (1.2-5.4) K/mm3 Cache # 1.6 H (0.0-0.8) K/mm3 Eos # 1.1 H (0.0-0.4) K/mm3 Baso # 0.1 (0.0-0.1) K/mm3 Comprehensive Metabolic Panel 06/04/18 06/04/18 Range/Units 14:01 21:44 Sodium 137 137 (137-145) mmol/L Potassium 3.6 3.2 L (3.6-5.0) mmol/L Chloride 92.7 L 92.7 L (98-107) mmol/L Carbon Dioxide 28 27 (22-30) mmol/L BUN 43 H 46 H (9-20) mg/dL Creatinine 2.8 H 2.8 H (0.8-1.5) mg/dL Glucose 232 H 180 H (75-100) mg/dL Calcium 9.1 8.9 (8.4-10.2) mg/dL AST 12 (5-40) units/L ALT 8 (7-56) units/L Alkaline Phosphatase 99 (35-129) units/L Total Protein 7.5 (6.3-8.2) g/dL Albumin 3.3 L (3.9-5) g/dL EKG interpretations - Telemetry EKG Rhythm: Sinus Rhythm Assessment and Plan - Patient Problems (1) Abnormal ECG Current Visit: Yes Status: Acute Plan to address problem: ECG is a normal sinus rhythm with asymptomatic PVCs, of no clinical significance. We note that he has a history of paroxysmal atrial fibrillation. Cardiovascular status is otherwise stable, continue medications for paroxysmal atrial fibrillation, including oral anticoagulation. (2) Edema Current Visit: Yes Status: Acute Plan to address problem: Chronic lower extremity edema is resolved, patient has residual chronic stasis changes. Recent outpatient echocardiogram reported normal left ventricle systolic function. No further cardiac intervention is indicated.
--- NOTE | 2018-06-05 14:06 | Ultrasound Report ---
ULTRASOUND RENAL BILATERAL HISTORY: Acute renal failure. TECHNIQUE: transabdominal ultrasound with color Doppler interrogation. COMPARISON: none. FINDINGS: The kidneys are normal size, contour and position. There is increased renal parenchymal echotexture bilaterally. Corticomedullary differentiation is preserved. No evidence for cystic disease, mass, nephrolithiasis, hydronephrosis or perinephric fluid. The views of the bladder and the region of the ureters appear normal. IMPRESSION: Renal parenchymal disease.
[2018-06-06 06:04] LABS: Hematocrit 30.5 % (35.5-45.6); Mean Corpuscular HGB Conc 33 % (32-34); Mean Corpuscular Hemoglobin 27 pg (28-32); Mean Corpuscular Volume 82 fl (84-94); Platelet Count 303 K/mm3 (140-440); Red Blood Count 3.71 M/mm3 (3.65-5.03); Red Cell Distribution Width 14.4 % (13.2-15.2)
[2018-06-06 06:19] LABS: Calcium 8.5 mg/dL (8.4-10.2)
[2018-06-06] MEDS: HumaLOG SUB-Q SCH ×4 (08:11→22:51)
[2018-06-06] MEDS ORDERED: K-DUR PO ONE ×2 (08:16→11:42)
--- NOTE | 2018-06-06 08:50 | Progress Note ---
Assessment and Plan - Patient Problems (1) Acute kidney injury Current Visit: No Status: Chronic Plan to address problem: Acute on chronic kidney disease. Acute kidney injury is probably prerenal azotemia. Kidney function is improving. Follow up electrolytes and renal function with diuresis. (2) Bilateral lower extremity edema Current Visit: Yes Status: Acute Plan to address problem: Continue IV diuretics but change to by mouth tomorrow (3) Type 2 diabetes mellitus with diabetic chronic kidney disease Current Visit: Yes Status: Acute Plan to address problem: Blood sugar management by primary attending (4) Hypertensive chronic kidney disease with stage 1 through stage 4 chronic kidney disease, or unspecified chronic kidney disease Current Visit: Yes Status: Acute Plan to address problem: Follow-up of blood pressure on current medications (5) Cellulitis of both lower extremities Current Visit: Yes Status: Acute Plan to address problem: Follow-up cultures. Continue antibiotics (6) Chronic kidney disease, stage III (moderate) Current Visit: Yes Status: Acute Plan to address problem: Chronic kidney disease present and is secondary to diabetic nephropathy/ hypertensive nephrosclerosis. Subjective Date of service: 06/06/18 Principal diagnosis: acute kidney injury superimposed on chronic kidney disease. Interval history: Patient seen lying in bed. Feels a bit better today. He slept well last night. Still complains of pain in his right knee and leg Objective - Exam Narrative Exam: Elderly -[place] lying in bed in no acute distress HEENT: NCAT, pink oral mucous membrane Neck: Supple, no venous distention CVS: S1S2 RRR with no murmur, rub or gallop Chest: Clear to auscultation but diminished in the lower zones Abdomen: obese soft, nontender, no organomegaly, bowel sounds are present Extremities: mild bilateral lower extremity edema, scaling with pigmentary changes in both legs with thickening of the skin, tenderness worse in the right leg Genitourinary deferred: Skin as noted in lower extremity exam Neuro: Awake, alert no focal deficits - Vital Signs Vital signs: Vital Signs - 12hr 06/06/18 06/06/18 02:11 07:42 Temperature 97.6 F 98.6 F Pulse Rate 77 72 Respiratory 18 18 Rate Blood Pressure 158/76 161/76 O2 Sat by Pulse 94 92 Oximetry - Lab 06/07/18 05:38 06/07/18 05:38 Most recent lab results Calcium 8.5 mg/dL (8.4-10.2) 06/06/18 05:01
--- NOTE | 2018-06-06 09:14 | Progress Note ---
Assessment and Plan Abnormal ECG ECG is a normal sinus rhythm with asymptomatic PVCs, of no clinical significance. Hx of paroxysmal Atrial fibrillation currently in sinus rhythm on eliquis as an outpatient for oral anticoagulation. Hypertension Diabetes mellitus Chronic lower extremity statis changes Chronic renal failure Recent outpatient echocardiogram reported normal left ventricle systolic function Conservative cardiac management. Subjective Date of service: 06/06/18 Principal diagnosis: acute kidney injury superimposed on chronic kidney disease. Interval history: Patient is resting in bed comfortably. He has no chest pain or shortness of breath. No reported events on telemetry monitoring overnight. Objective Vital Signs Temp Pulse Resp BP BP Pulse Ox 06/06/18 07:42 98.6 F 72 18 161/76 92 06/06/18 02:11 97.6 F 77 18 158/76 94 06/05/18 20:02 99.3 F 20 157/66 06/05/18 20:00 78 98 06/05/18 15:41 98.6 F 81 18 139/79 92 06/05/18 10:00 72 - Physical Examination General: Appears Well, No Apparent Distress HEENT: Positive: PERRL Cardiac: Positive: Reg Rate and Rhythm Lungs: Positive: Decreased Breath Sounds Neuro: Positive: Grossly Intact Extremities: Present: Other (chronic stasis changes) - Labs and Meds CBC 06/06/18 Range/Units 05:01 WBC 12.3 H (4.5-11.0) K/mm3 RBC 3.71 (3.65-5.03) M/mm3 Hgb 10.0 L (11.8-15.2) gm/dl Hct 30.5 L (35.5-45.6) % Plt Count 303 (140-440) K/mm3 Comprehensive Metabolic Panel 06/06/18 Range/Units 05:01 Sodium 136 L (137-145) mmol/L Potassium 3.4 L (3.6-5.0) mmol/L Chloride 96.8 L (98-107) mmol/L Carbon Dioxide 24 (22-30) mmol/L BUN 41 H (9-20) mg/dL Creatinine 2.0 H (0.8-1.5) mg/dL Glucose 178 H (75-100) mg/dL Calcium 8.5 (8.4-10.2) mg/dL
[2018-06-06] MEDS: ASPIRIN PO SCH (10:11)
[2018-06-06] MEDS: K-DUR PO SCH (10:11)
[2018-06-06] MEDS: ROCEPHIN/NS 1 GM/50 ML 1 GM/50 ML BAG IV SCH (10:11)
[2018-06-06] MEDS: METAMUCIL PO SCH (10:11)
[2018-06-06] MEDS: ZAROXOLYN PO SCH (10:12)
[2018-06-06] MEDS: FLOMAX PO SCH (10:12)
[2018-06-06] MEDS: ZYLOPRIM PO SCH (10:12)
[2018-06-06] MEDS: CLARITIN PO SCH (10:12)
[2018-06-06] MEDS: THERAGRAN Tab PO SCH (10:12)
[2018-06-06] MEDS: SODIUM CHLORIDE FLUSH SYRINGE 10 ML IV SCH ×2 (10:13→22:52)
[2018-06-06] MEDS: ELIQUIS PO SCH ×2 (11:23→22:50)
[2018-06-06] MEDS ORDERED: K-DUR PO NR (11:30)
[2018-06-06] MEDS ORDERED: DULCOLAX PR ONE (11:37)
--- NOTE | 2018-06-06 11:42 | Progress Note ---
Assessment and Plan Assessment and plan: Mr. Petr Hanson is a 77 yo man with a history of hypertension, type 2 DM, pvd, gout , OA and p. Afib on Eliquis who presented with leg pains and swelling. Admitted for arf, sirs, and lle cellulitis. * LLE venous duplex technically limited due to habitus, no DVT/SVT visualized * U/S bilateral kidneys reported renal parenchymal disease -ARF (acute renal failure) multi-factorial, with tubular necrosis dx on admission, improving from 2.8 to 2.0: renal u/s reported renal parenchymal disease, renal is following -Sepsis LLE cellulitis, poa resolving with chronic venous stasis, has a healed ulcer lower medical leg: treat with abx, wbc improved from 15.3 to 12.3 -Obese, bmi 35.5: weight reduction stressed -Type 2 DM with hyperglycemia: start diet, add ssi -Hypokalemia: replace and bmp am -Anemia, appears chronic because no signs of bleeding, but check cbc in am, ordered FOBT, still pending, ordered dulcolax pr to help -p. Afib per Cardiology, in SR now: Cardiology restarted Eliquis at renal dose -DVT prophylaxis: scd and Eliquis -Advance care planning: full code -Disposition: continue inpatient care, d/c once renal function stable and blood culture finalized History Interval history: Patient was seen and examined. Follow-up on current diagnosis of leg pains. Overnight uneventful. Patient denies any chest pain, shortness breath, nausea/ vomiting or severe headaches. Imaging, nursing note, chart, labs and old chart reviewed. Discussed with patient. Hospitalist Physical - Physical exam Narrative exam: GEN: WDWN, NAD, Awake, Alert, Orientated x 3 HEENT: NCAT, EOMI, PERRL, OP Clear NECK: supple, no adenopathy, no thyromegaly, no JVD CVS/HEART: RRR, normal S1S2, pulses present bilaterally CHEST/LUNGS: CTA B, Symmetrical chest expansion, good air entry bilaterally GI/Abdomen: soft, NTND, good bowel sounds, no guarding or rebound /Bladder: no suprapubic tenderness, no CVA or paraspinal tenderness EXT/Skin: lower leg venous changes leg >right, leg edema resolved, slight ankle edema MSK: FROM x 4 Neuro: CN 2-12 grossly intact, no new focal deficits Psych: calm - Constitutional Vitals: Temp Pulse Resp BP Pulse Ox 98.6 F 72 18 161/76 92 06/06/18 07:42 06/06/18 07:42 06/06/18 07:42 06/06/18 07:42 06/06/18 07:42 General appearance: Present: no acute distress Results - Labs CBC & Chem 7: 06/06/18 05:01 06/06/18 05:01 Labs: Laboratory Last Values WBC 12.3 K/mm3 (4.5-11.0) H 06/06/18 05:01 RBC 3.71 M/mm3 (3.65-5.03) 06/06/18 05:01 Hgb 10.0 gm/dl (11.8-15.2) L 06/06/18 05:01 Hct 30.5 % (35.5-45.6) L 06/06/18 05:01 MCV 82 fl (84-94) L 06/06/18 05:01 MCH 27 pg (28-32) L 06/06/18 05:01 MCHC 33 % (32-34) 06/06/18 05:01 RDW 14.4 % (13.2-15.2) 06/06/18 05:01 Plt Count 303 K/mm3 (140-440) 06/06/18 05:01 Lymph % (Auto) 10.5 % (13.4-35.0) L 06/04/18 21:44 [place] % (Auto) 10.5 % (0.0-7.3) H 06/04/18 21:44 Eos % (Auto) 7.2 % (0.0-4.3) H 06/04/18 21:44 Baso % (Auto) 0.7 % (0.0-1.8) 06/04/18 21:44 Lymph # 1.6 K/mm3 (1.2-5.4) 06/04/18 21:44 [place] # 1.6 K/mm3 (0.0-0.8) H 06/04/18 21:44 Eos # 1.1 K/mm3 (0.0-0.4) H 06/04/18 21:44 Baso # 0.1 K/mm3 (0.0-0.1) 06/04/18 21:44 Seg Neutrophils % 71.1 % (40.0-70.0) H 06/04/18 21:44 Seg Neutrophils # 10.9 K/mm3 (1.8-7.7) H 06/04/18 21:44 Sodium 136 mmol/L (137-145) L 06/06/18 05:01 Potassium 3.4 mmol/L (3.6-5.0) L 06/06/18 05:01 Chloride 96.8 mmol/L (98-107) L 06/06/18 05:01 Carbon Dioxide 24 mmol/L (22-30) 06/06/18 05:01 Anion Gap 19 mmol/L 06/06/18 05:01 BUN 41 mg/dL (9-20) H 06/06/18 05:01 Creatinine 2.0 mg/dL (0.8-1.5) H 06/06/18 05:01 Estimated GFR 39 ml/min 06/06/18 05:01 BUN/Creatinine Ratio 21 % 06/06/18 05:01 Glucose 178 mg/dL (75-100) H 06/06/18 05:01 POC Glucose 194 (70-105) H 06/06/18 06:24 Calcium 8.5 mg/dL (8.4-10.2) 06/06/18 05:01 Total Bilirubin 0.50 mg/dL (0.1-1.2) 06/04/18 14:01 AST 12 units/L (5-40) 06/04/18 14:01 ALT 8 units/L (7-56) 06/04/18 14:01 Alkaline Phosphatase 99 units/L (35-129) 06/04/18 14:01 Troponin T 0.030 ng/mL (0.00-0.029) H D 06/05/18 00:14 NT-Pro-B Natriuret Pep 583.7 pg/mL (0-900) 06/04/18 14:01 Total Protein 7.5 g/dL (6.3-8.2) 06/04/18 14:01 Albumin 3.3 g/dL (3.9-5) L 06/04/18 14:01 Albumin/Globulin Ratio 0.8 % 06/04/18 14:01 Triglycerides 218 mg/dL (2-149) H 06/04/18 21:44 Cholesterol 139 mg/dL (50-199) 06/04/18 21:44 LDL Cholesterol Direct 74 mg/dL (50-130) 06/04/18 21:44 HDL Cholesterol 35 mg/dL (40-59) L 06/04/18 21:44 Cholesterol/HDL Ratio 3.97 % 06/04/18 21:44
[2018-06-06] MEDS: APRESOLINE PO SCH ×2 (15:46→22:58)
[2018-06-06] MEDS: TYLENOL PO PRN ×2 (18:29→22:48)
[2018-06-07] MEDS: APRESOLINE PO SCH ×3 (06:51→22:32)
[2018-06-07 06:54] LABS: Hematocrit 33.3 % (35.5-45.6); Hemoglobin 10.7 gm/dl (11.8-15.2); Mean Corpuscular HGB Conc 32 % (32-34); Mean Corpuscular Hemoglobin 27 pg (28-32); Mean Corpuscular Volume 83 fl (84-94); Platelet Count 322 K/mm3 (140-440); Red Blood Count 4.02 M/mm3 (3.65-5.03); Red Cell Distribution Width 14.2 % (13.2-15.2)
[2018-06-07 07:01] LABS: Calcium 8.6 mg/dL (8.4-10.2)
[2018-06-07] MEDS: HumaLOG SUB-Q SCH ×4 (08:12→22:30)
[2018-06-07] MEDS ORDERED: NORCO 10/325 PO PRN (09:51)
--- NOTE | 2018-06-07 09:53 | Progress Note ---
Assessment and Plan Assessment and plan: Mr. Petr Hanson is a 77 yo man with a history of hypertension, type 2 DM, pvd, gout , OA and p. Afib on Eliquis who presented with leg pains and swelling. Admitted for arf, sirs, and lle cellulitis. * LLE venous duplex technically limited due to habitus, no DVT/SVT visualized * U/S bilateral kidneys reported renal parenchymal disease -ARF (acute renal failure) multi-factorial, with tubular necrosis dx on admission, improving from 2.8 to 1.8: renal u/s reported renal parenchymal disease, renal is following -Sepsis LLE cellulitis, poa resolving with chronic venous stasis, has a healed ulcer, lower medial leg: treat with abx, wbc improved from 15.3 to 12.6 -Obese, bmi 35.5: weight reduction stressed -Type 2 DM with hyperglycemia: start diet, add ssi, restart sq home Lantus -Right knee pains, ?gouty flare: follow up right knee xray and uric acid levels , restart home colchine and home allopurinol -Hypokalemia resolved today: continue to monitor -Anemia, appears chronic because no signs of bleeding, but check cbc in am, ordered FOBT, still pending, ordered dulcolax pr to help -p. Afib per Cardiology, in SR now: Cardiology restarted Eliquis at renal dose -DVT prophylaxis: scd and Eliquis -Advance care planning: full code -Disposition: continue inpatient care, d/c once renal function stable./plateau ( steadily improving) follow up right knee xray for effusion and uric acid level. History Interval history: Patient was seen and examined. Follow-up on current diagnosis of leg pains. Overnight uneventful. Patient denies any chest pain, shortness breath, nausea/ vomiting or severe headaches. Imaging, nursing note, chart, labs and old chart reviewed. Discussed with patient. Hospitalist Physical - Physical exam Narrative exam: GEN: WDWN, NAD, Awake, Alert, Orientated x 3 HEENT: NCAT, EOMI, PERRL, OP Clear NECK: supple, no adenopathy, no thyromegaly, no JVD CVS/HEART: RRR, normal S1S2, pulses present bilaterally CHEST/LUNGS: CTA B, Symmetrical chest expansion, good air entry bilaterally GI/Abdomen: soft, NTND, good bowel sounds, no guarding or rebound /Bladder: no suprapubic tenderness, no CVA or paraspinal tenderness EXT/Skin: lower leg venous changes leg >right, leg edema resolved, slight ankle edema MSK: FROM x 4 Neuro: CN 2-12 grossly intact, no new focal deficits Psych: calm - Constitutional Vitals: Temp Pulse Resp BP Pulse Ox 99.2 F 77 20 146/64 96 06/07/18 07:41 06/07/18 07:41 06/07/18 07:41 06/07/18 07:41 06/07/18 08:42 General appearance: Present: no acute distress Results - Labs CBC & Chem 7: 06/07/18 05:38 06/07/18 05:38 Labs: Laboratory Last Values WBC 12.6 K/mm3 (4.5-11.0) H 06/07/18 05:38 RBC 4.02 M/mm3 (3.65-5.03) 06/07/18 05:38 Hgb 10.7 gm/dl (11.8-15.2) L 06/07/18 05:38 Hct 33.3 % (35.5-45.6) L 06/07/18 05:38 MCV 83 fl (84-94) L 06/07/18 05:38 MCH 27 pg (28-32) L 06/07/18 05:38 MCHC 32 % (32-34) 06/07/18 05:38 RDW 14.2 % (13.2-15.2) 06/07/18 05:38 Plt Count 322 K/mm3 (140-440) 06/07/18 05:38 Lymph % (Auto) 10.5 % (13.4-35.0) L 06/04/18 21:44 [place] % (Auto) 10.5 % (0.0-7.3) H 06/04/18 21:44 Eos % (Auto) 7.2 % (0.0-4.3) H 06/04/18 21:44 Baso % (Auto) 0.7 % (0.0-1.8) 06/04/18 21:44 Lymph # 1.6 K/mm3 (1.2-5.4) 06/04/18 21:44 [place] # 1.6 K/mm3 (0.0-0.8) H 06/04/18 21:44 Eos # 1.1 K/mm3 (0.0-0.4) H 06/04/18 21:44 Baso # 0.1 K/mm3 (0.0-0.1) 06/04/18 21:44 Seg Neutrophils % 71.1 % (40.0-70.0) H 06/04/18 21:44 Seg Neutrophils # 10.9 K/mm3 (1.8-7.7) H 06/04/18 21:44 Sodium 138 mmol/L (137-145) 06/07/18 05:38 Potassium 3.7 mmol/L (3.6-5.0) 06/07/18 05:38 Chloride 97.2 mmol/L (98-107) L 06/07/18 05:38 Carbon Dioxide 27 mmol/L (22-30) 06/07/18 05:38 Anion Gap 18 mmol/L 06/07/18 05:38 BUN 35 mg/dL (9-20) H 06/07/18 05:38 Creatinine 1.8 mg/dL (0.8-1.5) H 06/07/18 05:38 Estimated GFR 44 ml/min 06/07/18 05:38 BUN/Creatinine Ratio 19 % 06/07/18 05:38 Glucose 223 mg/dL (75-100) H 06/07/18 05:38 POC Glucose 222 (70-105) H 06/07/18 07:51 Calcium 8.6 mg/dL (8.4-10.2) 06/07/18 05:38 Magnesium 2.10 mg/dL (1.7-2.3) 06/07/18 05:38 Total Bilirubin 0.50 mg/dL (0.1-1.2) 06/04/18 14:01 AST 12 units/L (5-40) 06/04/18 14:01 ALT 8 units/L (7-56) 06/04/18 14:01 Alkaline Phosphatase 99 units/L (35-129) 06/04/18 14:01 Troponin T 0.030 ng/mL (0.00-0.029) H D 06/05/18 00:14 NT-Pro-B Natriuret Pep 583.7 pg/mL (0-900) 06/04/18 14:01 Total Protein 7.5 g/dL (6.3-8.2) 06/04/18 14:01 Albumin 3.3 g/dL (3.9-5) L 06/04/18 14:01 Albumin/Globulin Ratio 0.8 % 06/04/18 14:01 Triglycerides 218 mg/dL (2-149) H 06/04/18 21:44 Cholesterol 139 mg/dL (50-199) 06/04/18 21:44 LDL Cholesterol Direct 74 mg/dL (50-130) 06/04/18 21:44 HDL Cholesterol 35 mg/dL (40-59) L 06/04/18 21:44 Cholesterol/HDL Ratio 3.97 % 06/04/18 21:44
[2018-06-07] MEDS: THERAGRAN Tab PO SCH (10:21)
[2018-06-07] MEDS: ASPIRIN PO SCH (10:21)
[2018-06-07] MEDS: K-DUR PO SCH (10:21)
[2018-06-07] MEDS: CLARITIN PO SCH (10:21)
[2018-06-07] MEDS: ZAROXOLYN PO SCH (10:21)
[2018-06-07] MEDS: ELIQUIS PO SCH ×2 (10:21→22:31)
[2018-06-07] MEDS: FLOMAX PO SCH (10:21)
[2018-06-07] MEDS: ZYLOPRIM PO SCH (10:22)
[2018-06-07] MEDS: METAMUCIL PO SCH (10:22)
[2018-06-07] MEDS: SODIUM CHLORIDE FLUSH SYRINGE 10 ML IV SCH ×2 (10:23→22:33)
[2018-06-07] MEDS: ROCEPHIN/NS 1 GM/50 ML 1 GM/50 ML BAG IV SCH (10:30)
[2018-06-07] MEDS: PLAVIX PO SCH (10:31)
[2018-06-07] MEDS: COLCHICINE PO SCH (10:32)
[2018-06-07] MEDS: ARICEPT PO SCH (10:50)
--- NOTE | 2018-06-07 11:38 | Progress Note ---
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 Interval history: LE cellulitis Hx of paroxysmal Atrial fibrillation on eliquis for oral anticoagulation. Hypertension Diabetes mellitus Chronic lower extremity statis changes Acute on Chronic renal failure Recent outpatient echocardiogram reported normal left ventricle systolic function Recommend: Continue current therapy. Titrate BP medications as needed. Objective Vital Signs Temp Pulse Resp BP BP Pulse Ox 06/07/18 08:42 96 06/07/18 07:41 99.2 F 77 20 146/64 97 06/07/18 06:51 83 152/65 06/07/18 02:00 83 95 06/07/18 01:21 97.3 F L 18 152/65 06/06/18 23:48 16 06/06/18 22:58 93 H 126/57 06/06/18 22:55 162/69 06/06/18 22:52 99.1 F 93 H 22 126/57 96 06/06/18 22:48 18 06/06/18 22:00 93 H 98 06/06/18 21:01 92 06/06/18 19:51 98.6 F 89 20 178/80 92 06/06/18 16:06 99.1 F 57 L 18 173/75 94 06/06/18 15:46 173/75 06/06/18 14:15 99.1 F 57 L 20 173/75 94 - Physical Examination General: Appears Well, No Apparent Distress HEENT: Positive: PERRL Neck: Positive: neck supple Cardiac: Positive: Reg Rate and Rhythm Lungs: Positive: clear to auscultation Neuro: Positive: Grossly Intact Abdomen: Positive: Soft Extremities: Present: Other (chronic stasis changes) - Labs and Meds CBC 06/07/18 Range/Units 05:38 WBC 12.6 H (4.5-11.0) K/mm3 RBC 4.02 (3.65-5.03) M/mm3 Hgb 10.7 L (11.8-15.2) gm/dl Hct 33.3 L (35.5-45.6) % Plt Count 322 (140-440) K/mm3 Comprehensive Metabolic Panel 06/07/18 Range/Units 05:38 Sodium 138 (137-145) mmol/L Potassium 3.7 (3.6-5.0) mmol/L Chloride 97.2 L (98-107) mmol/L Carbon Dioxide 27 (22-30) mmol/L BUN 35 H (9-20) mg/dL Creatinine 1.8 H (0.8-1.5) mg/dL Glucose 223 H (75-100) mg/dL Calcium 8.6 (8.4-10.2) mg/dL
--- NOTE | 2018-06-07 11:55 | Progress Note ---
Assessment and Plan - Patient Problems (1) Acute kidney injury Current Visit: No Status: Chronic Plan to address problem: Acute on chronic kidney disease. Acute kidney injury is probably prerenal azotemia. Kidney function is improving. Follow up electrolytes and renal function with diuresis. (2) Bilateral lower extremity edema Current Visit: Yes Status: Acute Plan to address problem: Much better. Change to oral diuretic (3) Type 2 diabetes mellitus with diabetic chronic kidney disease Current Visit: Yes Status: Acute Plan to address problem: Blood sugar management by primary attending (4) Hypertensive chronic kidney disease with stage 1 through stage 4 chronic kidney disease, or unspecified chronic kidney disease Current Visit: Yes Status: Acute Plan to address problem: Follow-up of blood pressure on current medications (5) Cellulitis of both lower extremities Current Visit: Yes Status: Acute Plan to address problem: Follow-up cultures. Continue antibiotics (6) Chronic kidney disease, stage III (moderate) Current Visit: Yes Status: Acute Plan to address problem: Chronic kidney disease present and is secondary to diabetic nephropathy/ hypertensive nephrosclerosis. Subjective Date of service: 06/07/18 Principal diagnosis: acute kidney injury superimposed on chronic kidney disease. Interval history: Patient seen lying in bed. Feels better today. Still complains of pain in knee and leg Objective - Exam Narrative Exam: Elderly -[place] lying in bed in no acute distress HEENT: NCAT, pink oral mucous membrane Neck: Supple, no venous distention CVS: S1S2 RRR with no murmur, rub or gallop Chest: Clear to auscultation but diminished in the lower zones Abdomen: obese soft, nontender, no organomegaly, bowel sounds are present Extremities: mild bilateral lower extremity edema, scaling with pigmentary changes in both legs with thickening of the skin, tenderness worse in the right leg Genitourinary deferred: Skin as noted in lower extremity exam Neuro: Awake, alert no focal deficits - Vital Signs Vital signs: Vital Signs - 12hr 06/07/18 06/07/18 06/07/18 01:21 02:00 06:51 Temperature 97.3 F L Pulse Rate 83 83 Respiratory 18 Rate Blood Pressure 152/65 152/65 O2 Sat by Pulse 95 Oximetry 06/07/18 06/07/18 07:41 08:42 Temperature 99.2 F Pulse Rate 77 Respiratory 20 Rate Blood Pressure 146/64 O2 Sat by Pulse 97 96 Oximetry - Lab 06/07/18 05:38 06/07/18 05:38 Most recent lab results Calcium 8.6 mg/dL (8.4-10.2) 06/07/18 05:38 Magnesium 2.10 mg/dL (1.7-2.3) 06/07/18 05:38
--- NOTE | 2018-06-07 12:51 | XRay Report ---
FINAL REPORT EXAM: XR KNEE 1-2V RT HISTORY: right knee pains TECHNIQUE: AP and lateral radiographs of the right knee. PRIORS: None. FINDINGS: No fracture. No dislocation. There is diffuse osteopenia. Moderate to severe tricompartment osteophyte formations are seen. There is joint space narrowing involving 3 compartments. No soft tissue abnormality. Right knee joint effusion is seen. Vascular calculi are seen. IMPRESSION: Moderate to severe osteoarthritis of the right knee. Right knee joint effusion.
[2018-06-07] MEDS: TYLENOL PO PRN (22:31)
[2018-06-08] MEDS: APRESOLINE PO SCH ×2 (06:36→15:00)
--- NOTE | 2018-06-08 08:13 | Progress Note ---
Assessment and Plan Assessment and plan: Mr. Petr Hanson is a 77 yo man with a history of hypertension, type 2 DM, pvd, gout , OA and p. Afib on Eliquis who presented with leg pains and swelling. Admitted for arf, sirs, and lle cellulitis. * LLE venous duplex technically limited due to habitus, no DVT/SVT visualized * U/S bilateral kidneys reported renal parenchymal disease -ARF (acute renal failure) multi-factorial, with tubular necrosis dx on admission, improving from 2.8 to 1.8: renal u/s reported renal parenchymal disease, renal is following -HTN:- Was stopped on ACEI due to renal function and Norvasc due to Hypotension. WIll start BB considering paraxoxysmal AFIB -Sepsis LLE cellulitis, poa resolving with chronic venous stasis, has a healed ulcer, lower medial leg: treat with abx, wbc improved from 15.3 to 12.6 -Obese, bmi 35.5: weight reduction stressed -Type 2 DM with hyperglycemia: start diet, adj ssi, restart sq home Lantus -Right knee pains, ?gouty flare: follow up right knee xray and uric acid levels , restart home colchine and home allopurinol -Hypokalemia resolved today: continue to monitor -Anemia, appears chronic because no signs of bleeding, but check cbc in am, ordered FOBT, still pending, ordered dulcolax pr to help -p. Afib per Cardiology, in SR now: Cardiology restarted Eliquis at renal dose -DVT prophylaxis: scd and Eliquis -Advance care planning: full code -Disposition: continue inpatient care, d/c once renal function stable./plateau ( steadily improving) follow up right knee xray for effusion and uric acid level. Anticipate discharge in AM if BP better control and renal continues to improve History Interval history: Patient seen and examined, complained of nausea. Hospitalist Physical - Physical exam Narrative exam: GEN: WDWN, NAD, Awake, Alert, Orientated x 3 HEENT: NCAT, EOMI, PERRL, OP Clear NECK: supple, no adenopathy, no thyromegaly, no JVD CVS/HEART: RRR, normal S1S2, pulses present bilaterally CHEST/LUNGS: CTA B, Symmetrical chest expansion, good air entry bilaterally GI/Abdomen: soft, NTND, good bowel sounds, no guarding or rebound /Bladder: no suprapubic tenderness, no CVA or paraspinal tenderness EXT/Skin: lower leg venous changes leg >right, leg edema resolved, slight ankle edema MSK: FROM x 4 Neuro: CN 2-12 grossly intact, no new focal deficits Psych: calm - Constitutional Vitals: Temp Pulse Resp BP Pulse Ox 98.7 F 79 20 180/76 97 06/08/18 03:04 06/08/18 06:36 06/08/18 03:04 06/08/18 06:36 06/08/18 03:04 General appearance: Present: no acute distress Results - Labs CBC & Chem 7: 06/07/18 05:38 06/08/18 08:19 Labs: Laboratory Last Values WBC 12.6 K/mm3 (4.5-11.0) H 06/07/18 05:38 RBC 4.02 M/mm3 (3.65-5.03) 06/07/18 05:38 Hgb 10.7 gm/dl (11.8-15.2) L 06/07/18 05:38 Hct 33.3 % (35.5-45.6) L 06/07/18 05:38 MCV 83 fl (84-94) L 06/07/18 05:38 MCH 27 pg (28-32) L 06/07/18 05:38 MCHC 32 % (32-34) 06/07/18 05:38 RDW 14.2 % (13.2-15.2) 06/07/18 05:38 Plt Count 322 K/mm3 (140-440) 06/07/18 05:38 Lymph % (Auto) 10.5 % (13.4-35.0) L 06/04/18 21:44 [place] % (Auto) 10.5 % (0.0-7.3) H 06/04/18 21:44 Eos % (Auto) 7.2 % (0.0-4.3) H 06/04/18 21:44 Baso % (Auto) 0.7 % (0.0-1.8) 06/04/18 21:44 Lymph # 1.6 K/mm3 (1.2-5.4) 06/04/18 21:44 [place] # 1.6 K/mm3 (0.0-0.8) H 06/04/18 21:44 Eos # 1.1 K/mm3 (0.0-0.4) H 06/04/18 21:44 Baso # 0.1 K/mm3 (0.0-0.1) 06/04/18 21:44 Seg Neutrophils % 71.1 % (40.0-70.0) H 06/04/18 21:44 Seg Neutrophils # 10.9 K/mm3 (1.8-7.7) H 06/04/18 21:44 Sodium 138 mmol/L (137-145) 06/07/18 05:38 Potassium 3.7 mmol/L (3.6-5.0) 06/07/18 05:38 Chloride 97.2 mmol/L (98-107) L 06/07/18 05:38 Carbon Dioxide 27 mmol/L (22-30) 06/07/18 05:38 Anion Gap 18 mmol/L 06/07/18 05:38 BUN 35 mg/dL (9-20) H 06/07/18 05:38 Creatinine 1.8 mg/dL (0.8-1.5) H 06/07/18 05:38 Estimated GFR 44 ml/min 06/07/18 05:38 BUN/Creatinine Ratio 19 % 06/07/18 05:38 Glucose 223 mg/dL (75-100) H 06/07/18 05:38 POC Glucose 239 (70-105) H 06/08/18 07:40 Uric Acid 6.6 mg/dL (3.5-7.6) 06/07/18 05:38 Calcium 8.6 mg/dL (8.4-10.2) 06/07/18 05:38 Magnesium 2.10 mg/dL (1.7-2.3) 06/07/18 05:38 Total Bilirubin 0.50 mg/dL (0.1-1.2) 06/04/18 14:01 AST 12 units/L (5-40) 06/04/18 14:01 ALT 8 units/L (7-56) 06/04/18 14:01 Alkaline Phosphatase 99 units/L (35-129) 06/04/18 14:01 Troponin T 0.030 ng/mL (0.00-0.029) H D 06/05/18 00:14 NT-Pro-B Natriuret Pep 583.7 pg/mL (0-900) 06/04/18 14:01 Total Protein 7.5 g/dL (6.3-8.2) 06/04/18 14:01 Albumin 3.3 g/dL (3.9-5) L 06/04/18 14:01 Albumin/Globulin Ratio 0.8 % 06/04/18 14:01 Triglycerides 218 mg/dL (2-149) H 06/04/18 21:44 Cholesterol 139 mg/dL (50-199) 06/04/18 21:44 LDL Cholesterol Direct 74 mg/dL (50-130) 06/04/18 21:44 HDL Cholesterol 35 mg/dL (40-59) L 06/04/18 21:44 Cholesterol/HDL Ratio 3.97 % 06/04/18 21:44
[2018-06-08] MEDS: HumaLOG SUB-Q SCH ×3 (08:30→17:14)
[2018-06-08 08:54] LABS: Calcium 8.8 mg/dL (8.4-10.2)
[2018-06-08] MEDS: THERAGRAN Tab PO SCH (09:02)
[2018-06-08] MEDS: COLCHICINE PO SCH (09:02)
[2018-06-08] MEDS: CLARITIN PO SCH (09:02)
[2018-06-08] MEDS: PLAVIX PO SCH (09:02)
[2018-06-08] MEDS: ZAROXOLYN PO SCH (09:02)
[2018-06-08] MEDS: ASPIRIN PO SCH (09:02)
[2018-06-08] MEDS: ARICEPT PO SCH (09:02)
[2018-06-08] MEDS: ZYLOPRIM PO SCH (09:03)
[2018-06-08] MEDS: K-DUR PO SCH (09:03)
[2018-06-08] MEDS: ELIQUIS PO SCH (09:03)
[2018-06-08] MEDS: FLOMAX PO SCH ×2 (09:03→09:17)
[2018-06-08] MEDS: METAMUCIL PO SCH (09:04)
[2018-06-08] MEDS: SODIUM CHLORIDE FLUSH SYRINGE 10 ML IV SCH (09:09)
[2018-06-08] MEDS ORDERED: ZOFRAN IV PRN (09:24)
[2018-06-08] MEDS: TYLENOL PO PRN (09:33)
[2018-06-08] MEDS ORDERED: LOPRESSOR PO SCH (10:00)
--- NOTE | 2018-06-08 10:46 | Progress Note ---
Assessment and Plan LE cellulitis Paroxysmal Atrial fibrillation/flutter Currently in rate controlled atypical atrial flutter. on eliquis for oral anticoagulation. Hypertension Diabetes mellitus Chronic lower extremity statis changes Acute on Chronic renal failure Recent outpatient echocardiogram reported normal left ventricle systolic function Recommend: Continue current therapy including systemic anticoagulation. Subjective Date of service: 06/08/18 Principal diagnosis: acute kidney injury superimposed on chronic kidney disease. Interval history: Pt has no cardiac complaints. Objective Vital Signs Temp Pulse Resp BP Pulse Ox 06/08/18 09:47 94 06/08/18 09:16 85 153/68 06/08/18 07:31 98.1 F 85 20 153/68 95 06/08/18 06:36 79 180/76 06/08/18 03:04 98.7 F 79 20 180/76 97 06/07/18 23:31 18 06/07/18 22:32 74 170/73 06/07/18 22:31 19 06/07/18 22:00 74 95 06/07/18 21:53 96 06/07/18 19:34 99.0 F 74 20 173/70 93 06/07/18 14:15 98.0 F 20 138/68 06/07/18 13:32 83 129/67 - Physical Examination General: Appears Well, No Apparent Distress HEENT: Positive: PERRL Neck: Positive: neck supple Cardiac: Positive: Irregularly Regular. Negative: Audible Murmur Neuro: Positive: Grossly Intact Abdomen: Positive: Soft Skin: Positive: Clear Extremities: Present: Other (chronic stasis changes) - Labs and Meds Comprehensive Metabolic Panel 06/08/18 Range/Units 08:19 Sodium 137 (137-145) mmol/L Potassium 4.1 (3.6-5.0) mmol/L Chloride 93.3 L (98-107) mmol/L Carbon Dioxide 24 (22-30) mmol/L BUN 35 H (9-20) mg/dL Creatinine 2.1 H (0.8-1.5) mg/dL Glucose 248 H (75-100) mg/dL Calcium 8.8 (8.4-10.2) mg/dL
[2018-06-08] MEDS: ROCEPHIN/NS 1 GM/50 ML 1 GM/50 ML BAG IV SCH (10:55)
--- NOTE | 2018-06-08 15:05 | Progress Note ---
Assessment and Plan - Patient Problems (1) Acute kidney injury Current Visit: No Status: Chronic Plan to address problem: Acute on chronic kidney disease. Acute kidney injury is probably prerenal azotemia. Kidney function is improving. Follow up electrolytes and renal function with diuresis. (2) Bilateral lower extremity edema Current Visit: Yes Status: Acute Plan to address problem: Much better. Continue oral diuretic (3) Type 2 diabetes mellitus with diabetic chronic kidney disease Current Visit: Yes Status: Acute Plan to address problem: Blood sugar management by primary attending (4) Hypertensive chronic kidney disease with stage 1 through stage 4 chronic kidney disease, or unspecified chronic kidney disease Current Visit: Yes Status: Acute Plan to address problem: Follow-up of blood pressure on current medications (5) Cellulitis of both lower extremities Current Visit: Yes Status: Acute Plan to address problem: Follow-up cultures. Continue antibiotics (6) Chronic kidney disease, stage III (moderate) Current Visit: Yes Status: Acute Plan to address problem: Chronic kidney disease present and is secondary to diabetic nephropathy/ hypertensive nephrosclerosis. Subjective Date of service: 06/08/18 Principal diagnosis: acute kidney injury superimposed on chronic kidney disease. Interval history: Patient seen lying in bed. Feels better today. Objective - Exam Narrative Exam: Elderly -[place] lying in bed in no acute distress HEENT: NCAT, pink oral mucous membrane Neck: Supple, no venous distention CVS: S1S2 RRR with no murmur, rub or gallop Chest: Clear to auscultation but diminished in the lower zones Abdomen: obese soft, nontender, no organomegaly, bowel sounds are present Extremities: mild bilateral lower extremity edema, scaling with pigmentary changes in both legs with thickening of the skin, tenderness worse in the right leg Genitourinary deferred: Skin as noted in lower extremity exam Neuro: Awake, alert no focal deficits - Vital Signs Vital signs: Vital Signs - 12hr 06/08/18 06/08/18 06/08/18 06:36 07:31 09:16 Temperature 98.1 F Pulse Rate 79 85 85 Respiratory 20 Rate Blood Pressure 180/76 153/68 153/68 O2 Sat by Pulse 95 Oximetry 06/08/18 06/08/18 09:47 10:00 Temperature Pulse Rate Respiratory Rate Blood Pressure O2 Sat by Pulse 94 96 Oximetry - Lab 06/07/18 05:38 06/08/18 08:19 Most recent lab results Calcium 8.8 mg/dL (8.4-10.2) 06/08/18 08:19 Magnesium 2.10 mg/dL (1.7-2.3) 06/07/18 05:38
[2018-06-08] MEDS: NON-FORMULARY (Mirabegron [Myrbetriq] 50 MG) PO SCH (15:25)
[2018-06-08] MEDS: OPTH OD SCH (22:00)
[2018-06-08] MEDS: INSULIN DEGLUDEC 40 UNIT SQ SCH (22:00)
[2018-06-08] MEDS ORDERED: PRED FORTE 1% OU SCH (22:00)
[2018-06-08] MEDS: [UNRECOGNIZED DRUG - OTHER] OD SCH (22:00)
[2018-06-09] MEDS: APRESOLINE PO SCH ×4 (02:14→23:07)
[2018-06-09] MEDS: ELIQUIS PO SCH ×2 (02:15→09:47)
[2018-06-09 07:14] LABS: Calcium 8.6 mg/dL (8.4-10.2)
--- NOTE | 2018-06-09 07:59 | Progress Note ---
Assessment and Plan - Patient Problems (1) [id number] kidney injury Current Visit: No Status: Chronic Plan to address problem: Overall, renal function is fluctuating. His renal studies indicate a slight elevation in creatinine. Would hold off on bumex for now as his edema seems to have improved. (2) Bilateral lower extremity edema Current Visit: Yes Status: Acute Plan to address problem: Edema has improved with diuresis. With elevating trends of serum creatinine will hold bumex for now. (3) Hypertensive chronic kidney disease with stage 1 through stage 4 chronic kidney disease, or unspecified chronic kidney disease Current Visit: Yes Status: Acute Plan to address problem: Patient blood pressure stable on current regimen. Will continue to monitor. (4) Type 2 diabetes mellitus with diabetic chronic kidney disease Current Visit: Yes Status: Acute Plan to address problem: Diabetes management per primary team (5) Cellulitis of both lower extremities Current Visit: Yes Status: Acute Plan to address problem: Blood cultures to date have no growth seen. Will continue to follow up. Please ensure that all antibiotics are dosed appropriately for renal function. Subjective Date of service: 06/09/18 Principal diagnosis: acute kidney injury superimposed on chronic kidney disease. Interval history: No acute issues overnight. Still complaining of nausea, but he is tolerating PO intake. He is having good urine output per nursing staff but they haven't measured it over the last 24 hours. They just emptied 240 cc urine from his urinal. Objective - Vital Signs Vital signs: Vital Signs - 12hr 06/08/18 06/08/18 06/09/18 21:11 22:00 02:14 Temperature Pulse Rate 84 84 Respiratory Rate Blood Pressure 163/77 163/77 O2 Sat by Pulse 95 97 Oximetry 06/09/18 03:43 Temperature 98.2 F Pulse Rate 93 H Respiratory 20 Rate Blood Pressure 165/74 O2 Sat by Pulse 97 Oximetry - General Appearance General appearance: well-nourished, appears stated age, obese EENT: PERRL Neck: no JVD, no thyromegaly Respiratory: Present: Clear to Ascultation Cardiology: regular, normal heart rate, S1S2, no murmurs Integumentary: no rash, warm and dry Neurologic: no focal deficit, no asterixis, alert and oriented x3 Psychiatric: mood/affect appropriate - Lab 06/07/18 05:38 06/09/18 05:59 Most recent lab results Calcium 8.6 mg/dL (8.4-10.2) 06/09/18 05:59 Magnesium 2.10 mg/dL (1.7-2.3) 06/07/18 05:38
[2018-06-09] MEDS: HumaLOG SUB-Q SCH ×3 (08:12→17:08)
[2018-06-09] MEDS: NON-FORMULARY (Mirabegron [Myrbetriq] 50 MG) PO SCH (09:41)
[2018-06-09] MEDS: ROCEPHIN/NS 1 GM/50 ML 1 GM/50 ML BAG IV SCH (09:41)
[2018-06-09] MEDS: K-DUR PO SCH (09:42)
[2018-06-09] MEDS: THERAGRAN Tab PO SCH (09:42)
[2018-06-09] MEDS: ZYLOPRIM PO SCH (09:42)
[2018-06-09] MEDS: CLARITIN PO SCH (09:42)
[2018-06-09] MEDS: ARICEPT PO SCH (09:42)
[2018-06-09] MEDS: LOPRESSOR PO SCH ×2 (09:42→23:06)
[2018-06-09] MEDS: ASPIRIN PO SCH (09:47)
[2018-06-09] MEDS: PLAVIX PO SCH (09:47)
[2018-06-09] MEDS: COLCHICINE PO SCH (09:47)
[2018-06-09] MEDS ORDERED: BUMEX PO SCH (10:00)
[2018-06-09] MEDS: METAMUCIL PO SCH (10:21)
--- NOTE | 2018-06-09 10:25 | Progress Note ---
Assessment and Plan Abnormal ECG ECG is a normal sinus rhythm with asymptomatic PVCs, of no clinical significance. Hx of paroxysmal Atrial fibrillation currently in sinus rhythm on eliquis as an outpatient for oral anticoagulation. Hypertension Diabetes mellitus Chronic lower extremity statis changes Chronic renal failure Recent outpatient echocardiogram reported normal left ventricle systolic function Conservative cardiac management. Subjective Date of service: 06/09/18 Principal diagnosis: acute kidney injury superimposed on chronic kidney disease. Interval history: No cardiac complaints. Objective Vital Signs Temp Pulse Resp BP Pulse Ox 06/09/18 09:42 83 128/70 06/09/18 08:05 95 06/09/18 07:38 99.1 F 89 18 159/65 91 06/09/18 03:43 98.2 F 93 H 20 165/74 97 06/09/18 02:14 84 163/77 06/08/18 22:00 97 06/08/18 21:11 84 163/77 95 06/08/18 15:00 72 112/64 06/08/18 14:33 98.8 F 72 20 112/64 90 - Physical Examination General: No Apparent Distress HEENT: Positive: PERRL Cardiac: Positive: Reg Rate and Rhythm Neuro: Positive: Grossly Intact Extremities: Present: Other (chronic stasis changes) - Labs and Meds Comprehensive Metabolic Panel 06/09/18 Range/Units 05:59 Sodium 136 L (137-145) mmol/L Potassium 3.8 (3.6-5.0) mmol/L Chloride 96.5 L (98-107) mmol/L Carbon Dioxide 25 (22-30) mmol/L BUN 43 H (9-20) mg/dL Creatinine 2.7 H (0.8-1.5) mg/dL Glucose 226 H (75-100) mg/dL Calcium 8.6 (8.4-10.2) mg/dL
[2018-06-09] MEDS: OPTH OD SCH ×2 (10:26→23:13)
[2018-06-09] MEDS: [UNRECOGNIZED DRUG - OTHER] OD SCH ×2 (10:26→23:13)
[2018-06-09] MEDS: SODIUM CHLORIDE FLUSH SYRINGE 10 ML IV SCH (10:29)
--- NOTE | 2018-06-09 10:45 | Progress Note ---
Assessment and Plan Assessment and plan: Mr. Petr Hanson is a 77 yo man with a history of hypertension, type 2 DM, pvd, gout , OA and p. Afib on Eliquis who presented with leg pains and swelling. Admitted for arf, sirs, and lle cellulitis. * LLE venous duplex technically limited due to habitus, no DVT/SVT visualized * U/S bilateral kidneys reported renal parenchymal disease -ARF (acute renal failure) multi-factorial, with tubular necrosis dx on admission,: renal u/s reported renal parenchymal disease, renal is following. Bumex held considering improving edema. Will monitor One more day and discharge in am if stable, -HTN:- Was stopped on ACEI due to renal function and Norvasc due to Hypotension. WIll start BB considering paraxoxysmal AFIB -Sepsis LLE cellulitis, poa resolving with chronic venous stasis, has a healed ulcer, lower medial leg: treat with abx, wbc improved from 15.3 to 12.6 -Obese, bmi 35.5: weight reduction stressed -Type 2 DM with hyperglycemia: start diet, adj ssi, restart sq home Lantus -Right knee pains, ?gouty flare: follow up right knee xray and uric acid levels , restart home colchine and home allopurinol -Hypokalemia resolved today: continue to monitor -Anemia, appears chronic because no signs of bleeding, but check cbc in am, ordered FOBT, still pending, ordered dulcolax pr to help -p. Afib per Cardiology, in SR now: Cardiology restarted Eliquis at renal dose -DVT prophylaxis: scd and Eliquis -Advance care planning: full code -Disposition: continue inpatient care, d/c once renal function stable./plateau ( steadily improving) follow up right knee xray for effusion and uric acid level. Anticipate discharge in AM if BP better control and renal continues to improve History Interval history: Patient seen and examined, complained of nausea this morning but not with the same severity. Hospitalist Physical - Physical exam Narrative exam: GEN: WDWN, NAD, Awake, Alert, Orientated x 3 HEENT: NCAT, EOMI, PERRL, OP Clear NECK: supple, no adenopathy, no thyromegaly, no JVD CVS/HEART: RRR, normal S1S2, pulses present bilaterally CHEST/LUNGS: CTA B, Symmetrical chest expansion, good air entry bilaterally GI/Abdomen: soft, NTND, good bowel sounds, no guarding or rebound /Bladder: no suprapubic tenderness, no CVA or paraspinal tenderness EXT/Skin: lower leg venous changes leg >right, leg edema resolved, slight ankle edema MSK: FROM x 4 Neuro: CN 2-12 grossly intact, no new focal deficits Psych: calm - Constitutional Vitals: Temp Pulse Resp BP Pulse Ox 99.1 F 83 18 128/70 95 06/09/18 07:38 06/09/18 09:42 06/09/18 07:38 06/09/18 09:42 06/09/18 08:05 General appearance: Present: no acute distress Results - Labs CBC & Chem 7: 06/07/18 05:38 06/09/18 05:59 Labs: Laboratory Last Values WBC 12.6 K/mm3 (4.5-11.0) H 06/07/18 05:38 RBC 4.02 M/mm3 (3.65-5.03) 06/07/18 05:38 Hgb 10.7 gm/dl (11.8-15.2) L 06/07/18 05:38 Hct 33.3 % (35.5-45.6) L 06/07/18 05:38 MCV 83 fl (84-94) L 06/07/18 05:38 MCH 27 pg (28-32) L 06/07/18 05:38 MCHC 32 % (32-34) 06/07/18 05:38 RDW 14.2 % (13.2-15.2) 06/07/18 05:38 Plt Count 322 K/mm3 (140-440) 06/07/18 05:38 Lymph % (Auto) 10.5 % (13.4-35.0) L 06/04/18 21:44 [place] % (Auto) 10.5 % (0.0-7.3) H 06/04/18 21:44 Eos % (Auto) 7.2 % (0.0-4.3) H 06/04/18 21:44 Baso % (Auto) 0.7 % (0.0-1.8) 06/04/18 21:44 Lymph # 1.6 K/mm3 (1.2-5.4) 06/04/18 21:44 [place] # 1.6 K/mm3 (0.0-0.8) H 06/04/18 21:44 Eos # 1.1 K/mm3 (0.0-0.4) H 06/04/18 21:44 Baso # 0.1 K/mm3 (0.0-0.1) 06/04/18 21:44 Seg Neutrophils % 71.1 % (40.0-70.0) H 06/04/18 21:44 Seg Neutrophils # 10.9 K/mm3 (1.8-7.7) H 06/04/18 21:44 Sodium 136 mmol/L (137-145) L 06/09/18 05:59 Potassium 3.8 mmol/L (3.6-5.0) 06/09/18 05:59 Chloride 96.5 mmol/L (98-107) L 06/09/18 05:59 Carbon Dioxide 25 mmol/L (22-30) 06/09/18 05:59 Anion Gap 18 mmol/L 06/09/18 05:59 BUN 43 mg/dL (9-20) H 06/09/18 05:59 Creatinine 2.7 mg/dL (0.8-1.5) H 06/09/18 05:59 Estimated GFR 28 ml/min 06/09/18 05:59 BUN/Creatinine Ratio 16 % 06/09/18 05:59 Glucose 226 mg/dL (75-100) H 06/09/18 05:59 POC Glucose 227 (70-105) H 06/09/18 07:50 Uric Acid 6.6 mg/dL (3.5-7.6) 06/07/18 05:38 Calcium 8.6 mg/dL (8.4-10.2) 06/09/18 05:59 Magnesium 2.10 mg/dL (1.7-2.3) 06/07/18 05:38 Total Bilirubin 0.50 mg/dL (0.1-1.2) 06/04/18 14:01 AST 12 units/L (5-40) 06/04/18 14:01 ALT 8 units/L (7-56) 06/04/18 14:01 Alkaline Phosphatase 99 units/L (35-129) 06/04/18 14:01 Troponin T 0.030 ng/mL (0.00-0.029) H D 06/05/18 00:14 NT-Pro-B Natriuret Pep 583.7 pg/mL (0-900) 06/04/18 14:01 Total Protein 7.5 g/dL (6.3-8.2) 06/04/18 14:01 Albumin 3.3 g/dL (3.9-5) L 06/04/18 14:01 Albumin/Globulin Ratio 0.8 % 06/04/18 14:01 Triglycerides 218 mg/dL (2-149) H 06/04/18 21:44 Cholesterol 139 mg/dL (50-199) 06/04/18 21:44 LDL Cholesterol Direct 74 mg/dL (50-130) 06/04/18 21:44 HDL Cholesterol 35 mg/dL (40-59) L 06/04/18 21:44 Cholesterol/HDL Ratio 3.97 % 06/04/18 21:44
[2018-06-09] MEDS: INSULIN DEGLUDEC 40 UNIT SQ SCH (23:12)
--- NOTE | 2018-06-10 08:14 | Progress Note ---
Assessment and Plan - Patient Problems (1) Eskrv-[id number]-spawrwc kidney injury Current Visit: No Status: Chronic Plan to address problem: Follow up renal function panel today. (2) Bilateral lower extremity edema Current Visit: Yes Status: Acute Plan to address problem: Improved. Bumex held in setting of upward trending creatinine levels. (3) Hypertensive chronic kidney disease with stage 1 through stage 4 chronic kidney disease, or unspecified chronic kidney disease Current Visit: Yes Status: Acute Plan to address problem: Would recommend increasing metoprolol to 25 mg BID for better blood pressure control. (4) Type 2 diabetes mellitus with diabetic chronic kidney disease Current Visit: Yes Status: Acute Plan to address problem: Diabetic management per primary team (5) Cellulitis of both lower extremities Current Visit: Yes Status: Acute Plan to address problem: Ensure that antibiotics are dosed appropriately for his decreased renal function. Subjective Date of service: 06/10/18 Principal diagnosis: acute kidney injury superimposed on chronic kidney disease. Interval history: No acute issues overnight. Patient did have three voids documented. Pending repeat renal function labs this am. Objective - Vital Signs Vital signs: Vital Signs - 12hr 06/09/18 06/09/18 06/09/18 20:50 23:06 23:07 Temperature 99.1 F Pulse Rate 81 81 81 Respiratory 20 Rate Blood Pressure 177/66 177/66 177/66 O2 Sat by Pulse 93 Oximetry - General Appearance General appearance: appears stated age, obese EENT: PERRL Neck: no JVD, no thyromegaly Respiratory: Present: Clear to Ascultation Cardiology: regular, S1S2 Gastrointestinal: normal, normoactive bowel sounds Integumentary: no rash Neurologic: no focal deficit Musculoskeletal: deferred Psychiatric: mood/affect appropriate - Lab 06/07/18 05:38 06/09/18 05:59 Most recent lab results Calcium 8.6 mg/dL (8.4-10.2) 06/09/18 05:59 Magnesium 2.10 mg/dL (1.7-2.3) 06/07/18 05:38
--- NOTE | 2018-06-10 09:35 | Discharge Summary ---
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 Petr Hanson is a 77 yo man with a history of hypertension, type 2 DM, pvd, gout , OA and p. Afib on Eliquis who presented with leg pains and swelling. Admitted for arf, sirs, and lle cellulitis. * LLE venous duplex technically limited due to habitus, no DVT/SVT visualized * U/S bilateral kidneys reported renal parenchymal disease -ARF (acute renal failure) multi-factorial, with tubular necrosis dx on admission,: renal u/s reported renal parenchymal disease, renal is following. Bumex held considering improving edema. Will monitor One more day and discharge in am if stable, -HTN:- Was stopped on ACEI due to renal function and Norvasc due to Hypotension. WIll start BB considering paraxoxysmal AFIB -Sepsis LLE cellulitis, poa resolving with chronic venous stasis, has a healed ulcer, lower medial leg: treatED with abx, wbc improved from 15.3 to 12.6 -Obese, bmi 35.5: weight reduction stressed -Type 2 DM with hyperglycemia: start diet, adj ssi, restart sq home Lantus -Right knee pains, ?gouty flare: follow up right knee xray and uric acid levels , restart home colchine and home allopurinol -Hypokalemia resolved today: continue to monitor -Anemia, appears chronic because no signs of bleeding, but check cbc in am, ordered FOBT, still pending, ordered dulcolax pr to help -p. Afib per Cardiology, in SR now: Cardiology restarted Eliquis at renal dose -DVT prophylaxis: scd and Eliquis -Advance care planning: full code -Disposition: continue inpatient care, d/c once renal function stable./plateau ( steadily improving) follow up right knee xray for effusion and uric acid level. Anticipate discharge in AM if BP better control and renal continues to improve Disposition: [id number]/TX-06 HOME UNDER [facility] Time spent for discharge: 35 MINS Exam - Constitutional Vitals: Temp Pulse Resp BP Pulse Ox 98.2 F 77 20 166/70 96 06/10/18 07:58 06/10/18 07:58 06/10/18 07:58 06/10/18 07:58 06/10/18 07:58 Plan Activity: advance as tolerated, fall precautions Diet: low salt, diabetic, renal Special Instructions: record daily weights, record daily BP diary, record blood sugar diary, physical therapy, occupational therapy, home health RN Follow up with: PRIMARY CARE, [Primary Care Provider] - 7 Days CLARA WU MD [Staff Physician] - 7 Days ROSEMARY QUINONES DO [Staff Physician] - 7 Days Prescriptions: Apixaban [Eliquis] 2.5 mg PO Q12HR #60 tablet hydrALAZINE [Apresoline TAB] 50 mg PO Q8HR #180 tablet HYDROcodone/APAP 10-325 [[place] 10-325 mg TAB] 1 each PO Q4H PRN #14 tablet PRN Reason: Pain , Severe (7-10) Metoprolol [Lopressor TAB] 12.5 mg PO BID #60 tablet
[2018-06-10] MEDS: HumaLOG SUB-Q SCH ×2 (09:45→13:23)
[2018-06-10] MEDS: THERAGRAN Tab PO SCH (10:59)
[2018-06-10] MEDS: K-DUR PO SCH (10:59)
[2018-06-10] MEDS: COLCHICINE PO SCH (10:59)
[2018-06-10] MEDS: ARICEPT PO SCH (10:59)
[2018-06-10] MEDS: ASPIRIN PO SCH (10:59)
[2018-06-10] MEDS: LOPRESSOR PO SCH (11:00)
[2018-06-10] MEDS: CLARITIN PO SCH (11:00)
[2018-06-10] MEDS: ZYLOPRIM PO SCH (11:00)
[2018-06-10] MEDS: PLAVIX PO SCH (11:00)
[2018-06-10] MEDS: SODIUM CHLORIDE FLUSH SYRINGE 10 ML IV SCH (11:02)
[2018-06-10] MEDS: ELIQUIS PO SCH (11:02)
[2018-06-10] MEDS: NON-FORMULARY (Mirabegron [Myrbetriq] 50 MG) PO SCH (11:03)
[2018-06-10] MEDS: METAMUCIL PO SCH (11:04)
[2018-06-10] MEDS: ROCEPHIN/NS 1 GM/50 ML 1 GM/50 ML BAG IV SCH (11:04)
--- NOTE | 2018-06-10 11:14 | Progress Note ---
Assessment and Plan Abnormal ECG ECG is a normal sinus rhythm with asymptomatic PVCs, of no clinical significance. Hx of paroxysmal Atrial fibrillation currently in sinus rhythm on eliquis as an outpatient for oral anticoagulation. Hypertension Diabetes mellitus Chronic lower extremity statis changes Chronic renal failure Recent outpatient echocardiogram reported normal left ventricle systolic function. Conservative cardiac management. Subjective Date of service: 06/10/18 Principal diagnosis: acute kidney injury superimposed on chronic kidney disease. Interval history: Patient is sitting up in bedside chair. He denies chest pain, shortness of breath and palpitations. Objective Vital Signs Temp Pulse Resp BP Pulse Ox 06/10/18 11:00 77 166/70 06/10/18 07:58 98.2 F 77 20 166/70 96 06/10/18 03:30 98.2 F 72 20 169/74 89 06/09/18 23:07 81 177/66 06/09/18 23:06 81 177/66 06/09/18 20:50 99.1 F 81 20 177/66 93 06/09/18 19:25 97 06/09/18 17:30 172/76 06/09/18 14:06 98.7 F 79 20 140/57 94 - Physical Examination General: No Apparent Distress HEENT: Positive: PERRL Cardiac: Positive: Reg Rate and Rhythm Neuro: Positive: Grossly Intact Extremities: Present: Other (chronic stasis changes)
[2018-06-10] MEDS: OPTH OD SCH (11:16)
[2018-06-10] MEDS: [UNRECOGNIZED DRUG - OTHER] OD SCH (11:16)
[2018-06-10 13:30] LABS: Calcium 8.5 mg/dL (8.4-10.2)
[2018-06-10 16:00] VITALS: BP 127/58
== END 2018-06-10 17:00 | disposition home health service (06) | DRG 871 ==
LOC: ED 13:24 → 2B-ACE 17:25
PROVIDERS: ADMIT Internal Medicine; ATTEND Internal Medicine
PROC: 3E0234Z Introduction of Serum, Toxoid and Vaccine into Muscle, Percutaneous Approach (ICD-10-PCS; principal; 2018-06-05)
DX: A41.9 Sepsis, unspecified organism (principal); N17.0 Acute kidney failure with tubular necrosis; L03.116 Cellulitis of left lower limb; L03.115 Cellulitis of right lower limb; I48.92 Unspecified atrial flutter; R94.31 Abnormal electrocardiogram [ECG] [EKG]; I12.9 Hypertensive chronic kidney disease with stage 1 through stage 4 chronic kidney disease, or unspecified chronic kidney disease; E11.22 Type 2 diabetes mellitus with diabetic chronic kidney disease; E11.51 Type 2 diabetes mellitus with diabetic peripheral angiopathy without gangrene; M10.9 Gout, unspecified; M19.90 Unspecified osteoarthritis, unspecified site; I48.0 Paroxysmal atrial fibrillation; I83.029 Varicose veins of left lower extremity with ulcer of unspecified site; E11.65 Type 2 diabetes mellitus with hyperglycemia; E87.6 Hypokalemia; D64.9 Anemia, unspecified; E11.21 Type 2 diabetes mellitus with diabetic nephropathy; E66.9 Obesity, unspecified; I49.3 Ventricular premature depolarization; I49.1 Atrial premature depolarization; Z96.652 Presence of left artificial knee joint; N18.3 Chronic kidney disease, stage 3 (moderate); I65.21 Occlusion and stenosis of right carotid artery; Z86.73 Personal history of transient ischemic attack (TIA), and cerebral infarction without residual deficits; Z89.612 Acquired absence of left leg above knee; Z89.611 Acquired absence of right leg above knee; Z68.35 Body mass index [BMI] 35.0-35.9, adult; Z98.62 Peripheral vascular angioplasty status; Z82.49 Family history of ischemic heart disease and other diseases of the circulatory system; Z83.3 Family history of diabetes mellitus; Z80.42 Family history of malignant neoplasm of prostate; Z91.041 Radiographic dye allergy status; Z91.013 Allergy to seafood; Z79.4 Long term (current) use of insulin; Z79.899 Other long term (current) drug therapy; Z23 Encounter for immunization
CPT/HCPCS: 36415; 76770; 80048; 80053; 80061; 82962; 83735; 83880; 84484; 84550; 85025; 85027; 87040; 90732; 93005; 93010; A9270-GY; J0696; J1815; J2405